=== PATIENT | female | born 1980 | race Caucasian/White ===

== ENCOUNTER → 2016-10-01 | Outpatient (CLI) | payer SELFPAY ==
--- NOTE | 2016-10-01 09:27 | US ---
EXAMINATION TYPE: US pelvic complete DATE OF EXAM: 10/01/2016 9:10 AM COMPARISON: CT on PACS CLINICAL HISTORY: Generalized ABD pain and primarily at LUQ; , family HX of endometriosis TECHNIQUE: Transabdominal (TA) Date of LMP: 09/14/2016 EXAM MEASUREMENTS: Uterus: 10.0 x 6.0 x 4.7cm Endometrial Stripe: 1.8cm Right Ovary: 3.3 x 2.8 x 3.1cm Left Ovary: 2.5 x 2.0 x 1.8cm FINDINGS: Findings: 1. Uterus: Anteverted 2. Endometrium: 3 line phase observed by sonography, thickness is wnl for Day 16 LMP 3. Right Ovary: small follicles are noted, color flow is noted within/at periphery of ovary 4. Left Ovary: small follicles noted with largest = 0.6 x 0.7 x 0.7cmcolor flow is noted within/at periphery of ovary 5. Bilateral Adnexa: within normal limits 6. Posterior cul-de-sac: 2 areas of free fluid noted with largest = 2.0 x 1.5 x 1.3cm IMPRESSION: 1. Nonspecific free fluid in pelvis.
--- NOTE | 2016-10-01 09:56 | US ---
EXAMINATION TYPE: US abdomen complete DATE OF EXAM: 10/01/2016 8:55 AM COMPARISON: CT on PACS CLINICAL HISTORY: Generalized Abd pain especially at LUQ; family HX of endometriosis. EXAM MEASUREMENTS: Liver Length: 17.3cm Gallbladder Wall: 0.2cm CBD: 0.4cm Spleen: 10.3cm Right Kidney: 12.1 x 5.7 x 4.7cm Left Kidney: 11.8 x 5.6 x 5.6cm ANATOMY: Findings: Pancreas: Limited by bowel gas Liver: Within normal limits Gallbladder: Within normal limits Evidence for sonographic Yap's sign: No CBD: Within normal limits Spleen: Within normal limits Right Kidney: No hydronephrosis or masses seen Left Kidney: No definite hydronephrosis or nephrolithiasis. Upper IVC: Within normal limits Abd Aorta: Within normal limits IMPRESSION: 1. No acute process. Normal Values: Liver Length: < 16cm wnl, 17-18cm upper limits, >18cm enlarged Spleen Length = < 13cm Renal Length = 9 - 12cm GB Wall: < 0.3cm CBD: < 0.6cm or < 1.0cm post cholecystectomy
== END | disposition home or self-care (01) ==
LOC: RADUSWWP 08:20
PROVIDERS: ATTEND Family Medicine
DX: Z00.00 Encounter for general adult medical examination without abnormal findings (principal); N39.0 Urinary tract infection, site not specified; R10.9 Unspecified abdominal pain; T50.905A Adverse effect of unspecified drugs, medicaments and biological substances, initial encounter; F41.9 Anxiety disorder, unspecified; F32.9 Major depressive disorder, single episode, unspecified; H53.9 Unspecified visual disturbance; N94.6 Dysmenorrhea, unspecified; N80.9 Endometriosis, unspecified; Z71.89 Other specified counseling; T78.1XXA Other adverse food reactions, not elsewhere classified, initial encounter; F41.1 Generalized anxiety disorder; Z87.448 Personal history of other diseases of urinary system; Z86.79 Personal history of other diseases of the circulatory system; D50.9 Iron deficiency anemia, unspecified; R19.4 Change in bowel habit; I88.9 Nonspecific lymphadenitis, unspecified; N92.0 Excessive and frequent menstruation with regular cycle; L98.9 Disorder of the skin and subcutaneous tissue, unspecified; E04.9 Nontoxic goiter, unspecified; F17.200 Nicotine dependence, unspecified, uncomplicated; Z71.3 Dietary counseling and surveillance; M25.50 Pain in unspecified joint; M54.9 Dorsalgia, unspecified
CPT/HCPCS: 76700; 76856

== ENCOUNTER → 2017-05-25 | Outpatient (CLI) | payer OTHER ==
[2017-05-26 01:34] LABS: Gliadin AB IgA, Deaminated NEGATIVE (NEGATIVE); Gliadin AB IgG, Deaminated NEGATIVE (NEGATIVE); Gliadin AB IgG, Unit <0.4 U/mL; Tis Transglutaminase IgA Unit <0.5 AI; Tis Transglutaminase IgG Unit <0.8 U/mL
== END | disposition home or self-care (01) ==
LOC: LABWHC1 15:24
PROVIDERS: ATTEND Allergy & Immunology
DX: E05.90 Thyrotoxicosis, unspecified without thyrotoxic crisis or storm (principal); K52.9 Noninfective gastroenteritis and colitis, unspecified
CPT/HCPCS: 36415; 82784; 83516; 84436; 84439; 84443; 86376; 86800

== ENCOUNTER 2018-10-21 21:00 | Emergency (ER) | payer BC ==
[2018-10-22 04:53] LABS: ALT 37 U/L (9-52); AST 21 U/L (14-36); Alkaline Phosphatase 73 U/L (38-126); Anion Gap 7 mmol/L; Blood Urea Nitrogen 10 mg/dL (7-17); Calcium 9.5 mg/dL (8.4-10.2); Carbon Dioxide 25 mmol/L (22-30); Chloride 106 mmol/L (98-107); Glucose 92 mg/dL (74-99); Potassium 4.5 mmol/L (3.5-5.1); Sodium 138 mmol/L (137-145); Total Bilirubin 0.4 mg/dL (0.2-1.3); Total Protein 6.8 g/dL (6.3-8.2)
[2018-10-22 05:06] LABS: INR 0.9 (<1.2); Partial Thromboplastin Time 25.7 sec (22.0-30.0); Prothrombin Time 9.5 sec (9.0-12.0)
[2018-10-22 05:27] LABS: Basophils % (A) 0 %; Eosinophils # (A) 0.2 k/uL (0-0.7); Eosinophils % (A) 2 %; HCT 36.5 % (34.0-46.0); HGB 11.6 gm/dL (11.4-16.0); Lymphocytes # (A) 2.5 k/uL (1.0-4.8); Lymphocytes % (A) 24 %; MCH 31.1 pg (25.0-35.0); MCHC 31.9 g/dL (31.0-37.0); MCV 97.5 fL (80.0-100.0); Mean Platelet Volume 8.5; Monocytes # (A) 0.5 k/uL (0-1.0); Monocytes % (A) 5 %; Neutrophils # (A) 6.9 k/uL (1.3-7.7); Neutrophils % (A) 67 %; Platelet Count 313 k/uL (150-450); RBC 3.74 m/uL (3.80-5.40); RDW 14.7 % (11.5-15.5); WBC 10.3 k/uL (3.8-10.6)
[2018-10-22 09:10] LABS: Appearance,Urine Cloudy (Clear); Bilirubin,Urine Negative (Negative); Blood,Urine Large (Negative); Color,Urine Light Red; Glucose,Urine (UA) Negative (Negative); Ketones,Urine Trace (Negative); Leukocyte Esterase,Urine Small (Negative); Mucus,Urine Occasional /hpf; Nitrite,Urine Negative (Negative); PH, Urine 5.5 (5.0-8.0); Protein,Urine 1+ (Negative); RBC,Urine >182 /hpf (0-5); Specific Gravity,Urine 1.015 (1.001-1.035); Urobilinogen,Urine <2.0 mg/dL (<2.0); WBC,Urine >182 /hpf (0-5)
== END 2018-10-21 23:57 | disposition home or self-care (01) ==
LOC: EC 21:00
DX: N93.9 Abnormal uterine and vaginal bleeding, unspecified (principal); D64.9 Anemia, unspecified; F17.200 Nicotine dependence, unspecified, uncomplicated; Z88.0 Allergy status to penicillin; Z88.2 Allergy status to sulfonamides
CPT/HCPCS: 36415; 80053; 81001; 85025; 85610; 85730; 86850; 86900; 86901; 99284

== ENCOUNTER → 2019-08-16 | Outpatient (CLI) | payer BC ==
[2019-08-16 10:36] LABS: Basophils # (A) 0.1 k/uL (0-0.2); Basophils % (A) 2 %; Eosinophils # (A) 0.3 k/uL (0-0.7); Eosinophils % (A) 3 %; HCT 40.7 % (34.0-46.0); HGB 13.1 gm/dL (11.4-16.0); Lymphocytes # (A) 1.6 k/uL (1.0-4.8); Lymphocytes % (A) 20 %; MCH 31.3 pg (25.0-35.0); MCHC 32.1 g/dL (31.0-37.0); MCV 97.7 fL (80.0-100.0); Mean Platelet Volume 8.6; Monocytes # (A) 0.5 k/uL (0-1.0); Monocytes % (A) 6 %; Neutrophils # (A) 5.4 k/uL (1.3-7.7); Neutrophils % (A) 68 %; Platelet Count 296 k/uL (150-450); RBC 4.17 m/uL (3.80-5.40)
[2019-08-16 12:07] LABS: INR 0.9 (<1.2); Prothrombin Time 9.6 sec (9.0-12.0)
[2019-08-16 17:44] LABS: Cardiolipin Ab IgG Interp NEGATIVE (NEGATIVE); Cardiolipin Ab IgM Interp NEGATIVE (NEGATIVE); Cardiolipin IgA Antibody 1.7 U/mL; Cardiolipin IgM Antibody 0.5 U/mL
[2019-08-17 11:34] LABS: Protein C (Activity) 124 % (71-138)
[2019-08-17 11:37] LABS: Anti-Thrombin III Activity 103 % (79-109)
[2019-08-17 12:00] LABS: Free Protein S Antigen 82 % (50 - 147); Protein S Antigen 103 % (50 - 140)
[2019-08-17 13:36] LABS: APTT 41 Sec(s) (<43); Dilute Russell Viper Venom 43 Sec(s) (<44)
== END | disposition home or self-care (01) ==
LOC: LABWHC1 08:53
PROVIDERS: ATTEND Nurse Practitioner
DX: Z09 Encounter for follow-up examination after completed treatment for conditions other than malignant neoplasm (principal); Z83.2 Family history of diseases of the blood and blood-forming organs and certain disorders involving the immune mechanism
CPT/HCPCS: 36415; 81241; 83090; 85025; 85300; 85303; 85305; 85306; 85384; 85610; 85613; 85730; 86147

== ENCOUNTER 2019-09-30 03:00 | Emergency (ER) | payer BC ==
[2019-09-30] MEDS ORDERED: SODIUM CHLORIDE 0.9% 1,000 ML IV STA ×2 (03:28→04:14)
[2019-09-30] MEDS ORDERED: ONDANSETRON 4 MG/2 ML VIAL IVP STA (03:54)
[2019-09-30] MEDS ORDERED: KETOROLAC 30 MG/ML 1 ML VIAL IVP STA (03:54)
[2019-09-30 04:00] LABS: Basophils # (A) 0.1 k/uL (0-0.2); Basophils % (A) 1 %; Eosinophils # (A) 0.2 k/uL (0-0.7); Eosinophils % (A) 2 %; HGB 12.6 gm/dL (11.4-16.0); Lymphocytes # (A) 1.3 k/uL (1.0-4.8); Lymphocytes % (A) 12 %; MCH 31.9 pg (25.0-35.0); MCHC 33.1 g/dL (31.0-37.0); MCV 96.5 fL (80.0-100.0); Monocytes # (A) 0.5 k/uL (0-1.0); Monocytes % (A) 4 %; Neutrophils # (A) 8.7 k/uL (1.3-7.7); Neutrophils % (A) 80 %; Platelet Count 293 k/uL (150-450); RBC 3.94 m/uL (3.80-5.40); RDW 12.7 % (11.5-15.5); WBC 10.9 k/uL (3.8-10.6)
[2019-09-30 04:05] LABS: Appearance,Urine Cloudy (Clear); Bilirubin,Urine Negative (Negative); Blood,Urine Large (Negative); Color,Urine Red; Glucose,Urine (UA) Negative (Negative); Ketones,Urine Trace (Negative); Leukocyte Esterase,Urine Moderate (Negative); Mucus,Urine Few /hpf; Nitrite,Urine Negative (Negative); PH, Urine 5.5 (5.0-8.0); Protein,Urine 1+ (Negative); RBC,Urine >182 /hpf (0-5); Specific Gravity,Urine 1.024 (1.001-1.035); Squamous Epithelial Cell,Urine 2 /hpf (0-4); Urobilinogen,Urine <2.0 mg/dL (<2.0); WBC,Urine >182 /hpf (0-5)
--- NOTE | 2019-09-30 04:05 | ED ---
General Adult HPI - General Source: patient, RN notes reviewed Mode of arrival: ambulatory Limitations: no limitations <Adal Lee P - Last Filed: 09/30/19 04:01> <Honey Donaldson P - Last Filed: 09/30/19 05:37> - General Chief complaint: Abdominal Pain Stated complaint: Abdominal pain rt side Time Seen by Provider: 09/30/19 03:12 - History of Present Illness Initial comments: 38-year-old female with a past medical history of endometriosis presents to the emergency department for right lower quadrant pain. Patient states this started approximately 11 PM tonight. States it is a sharp stabbing pain. Patient states she commonly gets pain secondary to endometriosis. Patient states that she has had a salpingectomy in March and she is scheduled to have a hysterectomy in October. Denies fevers or chills. Admits to one episode of vomiting after the pain started. Denies any nausea prior to the pain. Denies any diarrhea. Patient states she is currently menstruating. Patient has no other complaints at this time including shortness of breath, chest pain, headache, or visual changes. (Adal Lee) - Related Data Home Medications Medication Instructions Recorded Confirmed Methimazole [Tapazole] 5 mg PO DAILY 12/30/15 01/10/16 Iron 18 mg PO DAILY 01/10/16 01/10/16 Previous Rx's Medication Instructions Recorded Sulfamethoxazole/Trimethoprim 1 each PO BID 14 Days #28 tablet 09/30/19 [Bactrim DS 800-160 mg] Allergies Allergy/AdvReac Type Severity Reaction Status Date / Time amoxicillin Allergy Rash/Hives Verified 09/30/19 03:10 Penicillins Allergy Rash/Hives Verified 09/30/19 03:10 Review of Systems ROS Other: All systems not noted in ROS Statement are negative. <Adal Lee P - Last Filed: 09/30/19 04:01> ROS Other: All systems not noted in ROS Statement are negative. <Honey Donaldson P - Last Filed: 09/30/19 05:37> ROS Statement: Those systems with pertinent positive or pertinent negative responses have been documented in the HPI. Past Medical History Past Medical History: Thyroid Disorder Additional Past Medical History / Comment(s): low iron interstital cysitis History of Any Multi-Drug Resistant Organisms: None Reported Past Surgical History: Uterine Ablation Additional Past Surgical History / Comment(s): D&C 2007, wisdom teeth, laparoscopic lap for endometriosis. Past Psychological History: Anxiety Smoking Status: Current every day smoker Past Alcohol Use History: None Reported Past Drug Use History: Marijuana <Adal Lee P - Last Filed: 09/30/19 04:01> General Exam Limitations: no limitations General appearance: alert, in no apparent distress Head exam: Present: atraumatic, normocephalic, normal inspection Eye exam: Present: normal appearance, PERRL, EOMI. Absent: scleral icterus, conjunctival injection, periorbital swelling ENT exam: Present: normal exam, mucous membranes moist Neck exam: Present: normal inspection, full ROM. Absent: tenderness, meningis mus, lymphadenopathy Respiratory exam: Present: normal lung sounds bilaterally. Absent: respiratory distress, wheezes, rales, rhonchi, stridor Cardiovascular Exam: Present: regular rate, normal rhythm, normal heart sounds. Absent: systolic murmur, diastolic murmur, rubs, gallop, clicks GI/Abdominal exam: Present: soft, normal bowel sounds. Absent: distended, tenderness (No tenderness of the abdomen), guarding, rebound, rigid Expanded GI/Abdominal exam: Absent: psoas sign, obturator sign, heel tap sign, Yap's sign, Rovsing's sign, tenderness at McBurney's Point Neurological exam: Present: alert <Adal Lee P - Last Filed: 09/30/19 04:01> Course Vital Signs 09/30/19 03:07 Temperature 97.8 F Pulse Rate 79 Respiratory 18 Rate Blood Pressure 124/73 O2 Sat by Pulse 100 Oximetry Medical Decision Making - Lab Data Result diagrams: 09/30/19 03:39 <Adal Lee P - Last Filed: 09/30/19 04:01> - Lab Data Result diagrams: 09/30/19 03:39 09/30/19 03:39 <Honey Donaldson P - Last Filed: 09/30/19 05:37> - Medical Decision Making Patient presents for right lower quadrant pain. This is been ongoing for the past few hours. Vitals are stable. Patient is afebrile. Patient does not have any tenderness to the lower abdomen. No right lower quadrant tenderness. No physical exam signs consistent with appendicitis, no McBurney point tenderness. (Adal Lee) - Lab Data Lab Results 09/30/19 09/30/19 09/30/19 Range/Units 03:39 03:39 03:39 WBC 10.9 H (3.8-10.6) k/uL RBC 3.94 (3.80-5.40) m/uL Hgb 12.6 (11.4-16.0) gm/dL Hct 38.0 (34.0-46.0) % MCV 96.5 (80.0-100.0) fL MCH 31.9 (25.0-35.0) pg MCHC 33.1 (31.0-37.0) g/dL RDW 12.7 (11.5-15.5) % Plt Count 293 (150-450) k/uL Neutrophils % 80 % Lymphocytes % 12 % Monocytes % 4 % Eosinophils % 2 % Basophils % 1 % Neutrophils # 8.7 H (1.3-7.7) k/uL Lymphocytes # 1.3 (1.0-4.8) k/uL Monocytes # 0.5 (0-1.0) k/uL Eosinophils # 0.2 (0-0.7) k/uL Basophils # 0.1 (0-0.2) k/uL Sodium 138 (137-145) mmol/L Potassium 4.1 (3.5-5.1) mmol/L Chloride 108 H (98-107) mmol/L Carbon Dioxide 21 L (22-30) mmol/L Anion Gap 9 mmol/L BUN 17 (7-17) mg/dL Creatinine 0.62 (0.52-1.04) mg/dL Est GFR (CKD-EPI)AfAm >90 (>60 ml/min/1.73 sqM) Est GFR (CKD-EPI)NonAf >90 (>60 ml/min/1.73 sqM) Glucose 124 H (74-99) mg/dL Calcium 9.0 (8.4-10.2) mg/dL Total Bilirubin 0.5 (0.2-1.3) mg/dL AST 24 (14-36) U/L ALT 23 (4-34) U/L Alkaline Phosphatase 72 (38-126) U/L Total Protein 6.6 (6.3-8.2) g/dL Albumin 3.7 (3.5-5.0) g/dL Amylase 63 (30-110) U/L Lipase 98 (23-300) U/L Urine Color Urine Appearance (Clear) Urine pH (5.0-8.0) Ur Specific Harvey (1.001-1.035) Urine Protein (Negative) Urine Glucose (UA) (Negative) Urine Ketones (Negative) Urine Blood (Negative) Urine Nitrite (Negative) Urine Bilirubin (Negative) Urine Urobilinogen (<2.0) mg/dL Ur Leukocyte Esterase (Negative) Urine RBC (0-5) /hpf Urine WBC (0-5) /hpf Ur Squamous Epith Cells (0-4) /hpf Urine Mucus (None) /hpf Urine HCG, Qual Not Detected (Not Detectd) 09/30/19 Range/Units 03:39 WBC (3.8-10.6) k/uL RBC (3.80-5.40) m/uL Hgb (11.4-16.0) gm/dL Hct (34.0-46.0) % MCV (80.0-100.0) fL MCH (25.0-35.0) pg MCHC (31.0-37.0) g/dL RDW (11.5-15.5) % Plt Count (150-450) k/uL Neutrophils % % Lymphocytes % % Monocytes % % Eosinophils % % Basophils % % Neutrophils # (1.3-7.7) k/uL Lymphocytes # (1.0-4.8) k/uL Monocytes # (0-1.0) k/uL Eosinophils # (0-0.7) k/uL Basophils # (0-0.2) k/uL Sodium (137-145) mmol/L Potassium (3.5-5.1) mmol/L Chloride (98-107) mmol/L Carbon Dioxide (22-30) mmol/L Anion Gap mmol/L BUN (7-17) mg/dL Creatinine (0.52-1.04) mg/dL Est GFR (CKD-EPI)AfAm (>60 ml/min/1.73 sqM) Est GFR (CKD-EPI)NonAf (>60 ml/min/1.73 sqM) Glucose (74-99) mg/dL Calcium (8.4-10.2) mg/dL Total Bilirubin (0.2-1.3) mg/dL AST (14-36) U/L ALT (4-34) U/L Alkaline Phosphatase (38-126) U/L Total Protein (6.3-8.2) g/dL Albumin (3.5-5.0) g/dL Amylase (30-110) U/L Lipase (23-300) U/L Urine Color Red Urine Appearance Cloudy H (Clear) Urine pH 5.5 (5.0-8.0) Ur Specific Harvey 1.024 (1.001-1.035) Urine Protein 1+ H (Negative) Urine Glucose (UA) Negative (Negative) Urine Ketones Trace H (Negative) Urine Blood Large H (Negative) Urine Nitrite Negative (Negative) Urine Bilirubin Negative (Negative) Urine Urobilinogen <2.0 (<2.0) mg/dL Ur Leukocyte Esterase Moderate H (Negative) Urine RBC >182 H (0-5) /hpf Urine WBC >182 H (0-5) /hpf Ur Squamous Epith Cells 2 (0-4) /hpf Urine Mucus Few H (None) /hpf Urine HCG, Qual (Not Detectd) Disposition <Adal Lee P - Last Filed: 09/30/19 04:01> Is patient prescribed a controlled substance at d/c from ED?: No <Honey Donaldson P - Last Filed: 09/30/19 05:37> Clinical Impression: UTI (urinary tract infection) Disposition: HOME SELF-CARE Condition: Stable Additional Instructions: Take Bactrim twice daily for 14 days. Continue taking antibiotic even if he had resolution of her symptoms. Follow-up with her primary care physician for repeat urinalysis to ensure that the urinary tract infection has cleared. Return to the ER Any worsening pain discomfort fevers chills nausea vomiting inability tolerate her oral antibiotics or any new or concerning symptoms. Prescriptions: Sulfamethoxazole/Trimethoprim [Bactrim DS 800-160 mg] 1 each PO BID 14 Days #28 tablet Referrals: Dolly Ventura MD [Primary Care Provider] - 1-2 days
[2019-09-30 04:08] LABS: ALT 23 U/L (4-34); AST 24 U/L (14-36); African American GFR (CKD) >90 (>60 ml/min/1.73 sqM); Albumin 3.7 g/dL (3.5-5.0); Alkaline Phosphatase 72 U/L (38-126); Amylase 63 U/L (30-110); Anion Gap 9 mmol/L; Blood Urea Nitrogen 17 mg/dL (7-17); Carbon Dioxide 21 mmol/L (22-30); Chloride 108 mmol/L (98-107); Glucose 124 mg/dL (74-99); Non-African American GFR(CKD) >90 (>60 ml/min/1.73 sqM); Potassium 4.1 mmol/L (3.5-5.1); Sodium 138 mmol/L (137-145); Total Bilirubin 0.5 mg/dL (0.2-1.3); Total Protein 6.6 g/dL (6.3-8.2)
[2019-09-30] MEDS ORDERED: cefTRIAXone IN SWFI 1,000 MG/10 ML SYRINGE IVP STA (04:14)
[2019-09-30 05:57] VITALS: BP 137/84; PULSE 87; RESP 20; TEMP 98.7
== END 2019-09-30 05:57 | disposition home or self-care (01) ==
LOC: EC 03:00
DX: N39.0 Urinary tract infection, site not specified (principal); F17.200 Nicotine dependence, unspecified, uncomplicated; Z79.899 Other long term (current) drug therapy; Z88.0 Allergy status to penicillin
CPT/HCPCS: 36415; 80053; 82150; 83690; 85025; 81001; 81025; 87086; 99284; 96374; 96375 ×2; 96361 ×2; J2405; J0696; J1885

== ENCOUNTER 2019-10-09 11:25 | Emergency (ER) | payer BC ==
[2019-10-09 11:36] VITALS: RESP 18; TEMP 97.9
[2019-10-09 12:19] LABS: Appearance,Urine Cloudy (Clear); Bilirubin,Urine Negative (Negative); Blood,Urine Large (Negative); Color,Urine Red; Glucose,Urine (UA) Negative (Negative); Ketones,Urine Trace (Negative); Leukocyte Esterase,Urine Small (Negative); Mucus,Urine Occasional /hpf; Nitrite,Urine Negative (Negative); PH, Urine 5.5 (5.0-8.0); Protein,Urine 1+ (Negative); RBC,Urine >182 /hpf (0-5); Specific Gravity,Urine 1.018 (1.001-1.035); Urobilinogen,Urine <2.0 mg/dL (<2.0); WBC,Urine 104 /hpf (0-5)
[2019-10-09 12:48] LABS: Basophils # (A) 0.1 k/uL (0-0.2); Basophils % (A) 1 %; Eosinophils # (A) 0.9 k/uL (0-0.7); Eosinophils % (A) 8 %; HCT 40.7 % (34.0-46.0); HGB 13.1 gm/dL (11.4-16.0); Lymphocytes # (A) 1.8 k/uL (1.0-4.8); Lymphocytes % (A) 16 %; MCH 31.1 pg (25.0-35.0); MCHC 32.2 g/dL (31.0-37.0); MCV 96.7 fL (80.0-100.0); Mean Platelet Volume 8.9; Monocytes # (A) 0.7 k/uL (0-1.0); Monocytes % (A) 6 %; Neutrophils # (A) 7.9 k/uL (1.3-7.7); Neutrophils % (A) 69 %; Platelet Count 254 k/uL (150-450); RBC 4.21 m/uL (3.80-5.40); RDW 12.5 % (11.5-15.5); WBC 11.4 k/uL (3.8-10.6)
[2019-10-09 13:02] LABS: ALT 26 U/L (4-34); AST 22 U/L (14-36); African American GFR (CKD) >90 (>60 ml/min/1.73 sqM); Albumin 3.8 g/dL (3.5-5.0); Alkaline Phosphatase 83 U/L (38-126); Anion Gap 9 mmol/L; Blood Urea Nitrogen 11 mg/dL (7-17); Calcium 8.9 mg/dL (8.4-10.2); Carbon Dioxide 27 mmol/L (22-30); Chloride 105 mmol/L (98-107); Glucose 97 mg/dL (74-99); Non-African American GFR(CKD) >90 (>60 ml/min/1.73 sqM); Sodium 141 mmol/L (137-145); Total Bilirubin 0.4 mg/dL (0.2-1.3); Total Protein 6.7 g/dL (6.3-8.2)
[2019-10-09 13:35] VITALS: BP 120/73; PULSE 78
--- NOTE | 2019-10-09 13:56 | CT ---
EXAMINATION TYPE: CT abdomen pelvis wo con DATE OF EXAM: 10/09/2019 COMPARISON: 12/24/2018 HISTORY: RT flank pain/hematuria today. recent UTI CT DLP: 2134 mGycm Examination of the solid and hollow viscera is limited given the lack of contrast. FINDINGS: LUNG BASES: No evidence for nodule. No evidence for infiltrate. LIVER/GB: The gallbladder is unremarkable. No space-occupying hepatic lesion. PANCREAS: No pancreatic mass identified. No inflammatory process seen. SPLEEN: No evidence for splenomegaly. No intrasplenic lesions seen. ADRENALS: No adrenal nodules identified. No evidence for thickening. KIDNEYS: No evidence for renal mass. Small bilateral nonobstructing renal calculi all less than 3 mm. There is fullness of the right renal collecting system however a discrete obstructing calculus is no t identified. This could reflect a recently passed calculus. Correlate clinically. BOWEL: Appendix has a normal appearance. No evidence of bowel obstruction. No inflammatory process. Lymph nodes: No evidence for adenopathy greater than 1 cm. Abdominal aorta: Atheromatous changes seen. No evidence for aneurysm. Genital organs: No significant abnormality. Other: No significant abnormality. IMPRESSION: Small bilateral nonobstructing renal calculi all less than 3 mm. There is fullness of the right renal collecting system however a discrete obstructing calculus is not identified. This could reflect a re cently passed calculus. Correlate clinically.
[2019-10-09] MEDS ORDERED: cefTRIAXone 1,000 MG VIAL (IM USE) IM STA (14:01)
--- NOTE | 2019-10-09 14:04 | ED ---
Abdominal Pain HPI - General Chief Complaint: Abdominal Pain Stated Complaint: Rt side pain Time Seen by Provider: 10/09/19 12:02 Source: patient Mode of arrival: ambulatory Limitations: no limitations - History of Present Illness Initial Comments: 38yo female history of interstitial cystitis presents emergency department today for chief complaint of right flank pain that has since resolved dysuria. Patient states that this morning she noticed right flank pain she states is sharp in nature coming going fluctuating in intensity. Patient states he felt similar to the pain she experienced a few weeks prior. Patient denies history of fevers. She denies any nausea or vomiting. Patient states the pain radiated towards her groin and she noticed that she could not urinate after multiple times and having urgency patient states that once she is emergency department ahead to provide urine sample she was able to finally urinate however she noticed dysuria and hematuria. Patient now states that the pain in the right flank is gone completely. Patient denies any current symptoms aside from hematuria and concern for kidney stone patient denies known history. Patient afebrile, comfortable in appearance on arrival. - Related Data Home Medications Medication Instructions Recorded Confirmed Methimazole [Tapazole] 5 mg PO DAILY 12/30/15 01/10/16 Iron 18 mg PO DAILY 01/10/16 01/10/16 Previous Rx's Medication Instructions Recorded Sulfamethoxazole/Trimethoprim 1 each PO BID 14 Days #28 tablet 09/30/19 [Bactrim DS 800-160 mg] Cephalexin [Keflex] 500 mg PO Q6HR 7 Days #28 cap 10/09/19 Allergies Allergy/AdvReac Type Severity Reaction Status Date / Time amoxicillin Allergy Rash/Hives Verified 10/09/19 11:36 Penicillins Allergy Rash/Hives Verified 10/09/19 11:36 Review of Systems ROS Statement: Those systems with pertinent positive or pertinent negative responses have been documented in the HPI. ROS Other: All systems not noted in ROS Statement are negative. Past Medical History Past Medical History: Thyroid Disorder Additional Past Medical History / Comment(s): low iron interstital cysitis History of Any Multi-Drug Resistant Organisms: None Reported Past Surgical History: Uterine Ablation Additional Past Surgical History / Comment(s): D&C 2007, wisdom teeth, laparoscopic lap for endometriosis. Past Psychological History: Anxiety Smoking Status: Current every day smoker Past Alcohol Use History: None Reported Past Drug Use History: Marijuana General Exam - General Exam Comments Initial Comments: General: The patient is awake and alert, in no distress, and does not appear acutely ill. Eye: +3 mm pupils are equal, round and reactive to light, extra-ocular movements are intact. No nystagmus. There is normal conjunctiva bilaterally. No signs of icterus. Ears, nose, mouth and throat: There are moist mucous membranes and no oral lesions. Neck: The neck is supple, there is no tenderness or JVD. Cardiovascular: There is a regular rate and rhythm. No murmur, rub or gallop is appreciated. Respiratory: Lungs are clear to auscultation, respirations are non-labored, breath sounds are equal. No wheezes, stridor, rales, or rhonchi. Gastrointestinal: Soft, non-distended, non-tender abdomen without masses or organomegaly noted. There is no rebound or guarding present. Musculoskeletal: Normal ROM, no tenderness. Strength 5/5. Sensation intact. Pulses equal bilaterally 2+. Neurological: A&O x 3. CN II-XII intact grossly, There are no obvious motor or sensory deficits. Coordination appears grossly intact. Speech is normal. Skin: Skin is warm and dry and no rashes or lesions are noted. Psychiatric: Cooperative, appropriate mood & affect, normal judgment. Limitations: no limitations Course Vital Signs 10/09/19 10/09/19 11:33 13:34 Temperature 97.9 F Pulse Rate 97 78 Respiratory 18 18 Rate Blood Pressure 136/95 120/73 O2 Sat by Pulse 99 97 Oximetry Medical Decision Making - Medical Decision Making 38yo female presenting today for chief complaint of right flank pain has since subsided after patient had been towards her groin dysuria and inability urinate then spotting is passage of urine with pain and hematuria. CT revealed findings consistent with possibly recently passed stone there is no evidence of urolithiasis. Nephrolithiasis his nose bilaterally. No obstructing stones. Patient's urine is concerning for possible urinary tract infection superimposed on hematuria most likely from recently passed stone. Patient was recently on Macrobid. Patient denies any fever she does not appear toxic very mild leukocytosis. At this time feel patient is stable for discharge with outpatient neurology and primary care follow-up with strict return parameters for any fevers return of pain patient verbalizes understanding and is agreeable with this Plan and was discharged appearing well - Lab Data Result diagrams: 10/09/19 12:37 10/09/19 12:37 Lab Results 10/09/19 10/09/19 10/09/19 Range/Units 11:35 11:35 12:37 WBC 11.4 H (3.8-10.6) k/uL RBC 4.21 (3.80-5.40) m/uL Hgb 13.1 (11.4-16.0) gm/dL Hct 40.7 (34.0-46.0) % MCV 96.7 (80.0-100.0) fL MCH 31.1 (25.0-35.0) pg MCHC 32.2 (31.0-37.0) g/dL RDW 12.5 (11.5-15.5) % Plt Count 254 (150-450) k/uL Neutrophils % 69 % Lymphocytes % 16 % Monocytes % 6 % Eosinophils % 8 % Basophils % 1 % Neutrophils # 7.9 H (1.3-7.7) k/uL Lymphocytes # 1.8 (1.0-4.8) k/uL Monocytes # 0.7 (0-1.0) k/uL Eosinophils # 0.9 H (0-0.7) k/uL Basophils # 0.1 (0-0.2) k/uL Sodium (137-145) mmol/L Potassium (3.5-5.1) mmol/L Chloride (98-107) mmol/L Carbon Dioxide (22-30) mmol/L Anion Gap mmol/L BUN (7-17) mg/dL Creatinine (0.52-1.04) mg/dL Est GFR (CKD-EPI)AfAm (>60 ml/min/1.73 sqM) Est GFR (CKD-EPI)NonAf (>60 ml/min/1.73 sqM) Glucose (74-99) mg/dL Calcium (8.4-10.2) mg/dL Total Bilirubin (0.2-1.3) mg/dL AST (14-36) U/L ALT (4-34) U/L Alkaline Phosphatase (38-126) U/L Total Protein (6.3-8.2) g/dL Albumin (3.5-5.0) g/dL Urine Color Red Urine Appearance Cloudy H (Clear) Urine pH 5.5 (5.0-8.0) Ur Specific Delta 1.018 (1.001-1.035) Urine Protein 1+ H (Negative) Urine Glucose (UA) Negative (Negative) Urine Ketones Trace H (Negative) Urine Blood Large H (Negative) Urine Nitrite Negative (Negative) Urine Bilirubin Negative (Negative) Urine Urobilinogen <2.0 (<2.0) mg/dL Ur Leukocyte Esterase Small H (Negative) Urine RBC >182 H (0-5) /hpf Urine WBC 104 H (0-5) /hpf Urine Mucus Occasional H (None) /hpf Urine HCG, Qual Not Detected (Not Detectd) 10/09/19 Range/Units 12:37 WBC (3.8-10.6) k/uL RBC (3.80-5.40) m/uL Hgb (11.4-16.0) gm/dL Hct (34.0-46.0) % MCV (80.0-100.0) fL MCH (25.0-35.0) pg MCHC (31.0-37.0) g/dL RDW (11.5-15.5) % Plt Count (150-450) k/uL Neutrophils % % Lymphocytes % % Monocytes % % Eosinophils % % Basophils % % Neutrophils # (1.3-7.7) k/uL Lymphocytes # (1.0-4.8) k/uL Monocytes # (0-1.0) k/uL Eosinophils # (0-0.7) k/uL Basophils # (0-0.2) k/uL Sodium 141 (137-145) mmol/L Potassium 4.0 (3.5-5.1) mmol/L Chloride 105 (98-107) mmol/L Carbon Dioxide 27 (22-30) mmol/L Anion Gap 9 mmol/L BUN 11 (7-17) mg/dL Creatinine 0.75 (0.52-1.04) mg/dL Est GFR (CKD-EPI)AfAm >90 (>60 ml/min/1.73 sqM) Est GFR (CKD-EPI)NonAf >90 (>60 ml/min/1.73 sqM) Glucose 97 (74-99) mg/dL Calcium 8.9 (8.4-10.2) mg/dL Total Bilirubin 0.4 (0.2-1.3) mg/dL AST 22 (14-36) U/L ALT 26 (4-34) U/L Alkaline Phosphatase 83 (38-126) U/L Total Protein 6.7 (6.3-8.2) g/dL Albumin 3.8 (3.5-5.0) g/dL Urine Color Urine Appearance (Clear) Urine pH (5.0-8.0) Ur Specific Delta (1.001-1.035) Urine Protein (Negative) Urine Glucose (UA) (Negative) Urine Ketones (Negative) Urine Blood (Negative) Urine Nitrite (Negative) Urine Bilirubin (Negative) Urine Urobilinogen (<2.0) mg/dL Ur Leukocyte Esterase (Negative) Urine RBC (0-5) /hpf Urine WBC (0-5) /hpf Urine Mucus (None) /hpf Urine HCG, Qual (Not Detectd) Disposition Clinical Impression: Nephrolithiasis Disposition: HOME SELF-CARE Condition: Good Instructions (If sedation given, give patient instructions): Kidney Stones (ED) Additional Instructions: Please use medication as discussed. Please follow-up with family doctor in the next 2 days, and urology as discussed. If develop similar symptoms, develop fever, must return to ER. Please return to emergency room if the symptoms increase or worsen or for any other concerns. Prescriptions: Cephalexin [Keflex] 500 mg PO Q6HR 7 Days #28 cap Is patient prescribed a controlled substance at d/c from ED?: No Referrals: Dolly Ventura MD [Primary Care Provider] - 1-2 days Deshawn Adams MD [STAFF PHYSICIAN] - 1-2 days Time of Disposition: 14:03
== END 2019-10-09 14:20 | disposition home or self-care (01) ==
LOC: EC 11:25
DX: N20.0 Calculus of kidney (principal); D72.829 Elevated white blood cell count, unspecified; E07.9 Disorder of thyroid, unspecified; F17.200 Nicotine dependence, unspecified, uncomplicated; Z88.0 Allergy status to penicillin; Z79.899 Other long term (current) drug therapy; Z87.448 Personal history of other diseases of urinary system
CPT/HCPCS: 36415; 80053; 85025; 81001; 81025; 87086; 74176; 99284; 96372; J0696

== ENCOUNTER 2019-11-25 20:43 | Emergency (ER) | payer BC ==
[2019-11-25 20:48] VITALS: TEMP 98
[2019-11-25] MEDS ORDERED: SODIUM CHLORIDE 0.9% 1,000 ML IV ONE (20:50)
[2019-11-25] MEDS ORDERED: MORPHINE SULFATE 4 MG/ML SYRINGE IVP STA (20:55)
[2019-11-25] MEDS ORDERED: SODIUM CHLORIDE 0.9% 1,000 ML IV SCH (21:00)
[2019-11-25 21:15] LABS: Basophils # (A) 0.1 k/uL (0-0.2); Basophils % (A) 0 %; Eosinophils # (A) 0.5 k/uL (0-0.7); Eosinophils % (A) 3 %; HCT 40.3 % (34.0-46.0); Lymphocytes # (A) 2.3 k/uL (1.0-4.8); Lymphocytes % (A) 17 %; MCH 30.7 pg (25.0-35.0); MCHC 32.3 g/dL (31.0-37.0); MCV 94.9 fL (80.0-100.0); Mean Platelet Volume 8.8; Monocytes # (A) 0.7 k/uL (0-1.0); Monocytes % (A) 5 %; Neutrophils % (A) 74 %; Platelet Count 290 k/uL (150-450); RBC 4.25 m/uL (3.80-5.40); RDW 13.5 % (11.5-15.5); WBC 13.6 k/uL (3.8-10.6)
--- NOTE | 2019-11-25 21:27 | ED ---
Abdominal Pain HPI - General Chief Complaint: Abdominal Pain Stated Complaint: Abd pain Time Seen by Provider: 11/25/19 20:49 Source: patient Mode of arrival: ambulatory Limitations: no limitations - History of Present Illness Initial Comments: 38-year-old female currently 19 days post laparoscopic hysterectomy performed at [facility] presents emergency department for left upper quadrant pain since Tuesday. Patient states she's had persistent left upper quadrant pain since Tuesday. She describes it as a sharp pain that increases with movement. Patient denies any pleuritic chest pain hemoptysis leg swelling patient denies any substernal chest pain or pressure. Patient denies any shortness of breath. Patient states that she has not had any fevers she denies any vaginal discharge or orders and states she is a light pink discoloration on the toilet paper which she discussed on 's appointment with her AGRICULTURAL ENGINEER who stated that this was normal postoperative she also discussed the left upper quadrant THIS time her surgeon stated this may be due to an hematoma from the surgery and that this may last a few weeks. Patient denies any nausea vomiting diarrhea. Denies any hematuria. Patient does admit to some dysuria and urgency and thought she did UTI earlier this week. Patient denies any other complaints or concerns she de nies any lower pelvic pain she states there is no pain in the area of the surgery. Remaining review systems negative on arrival patient appears well no signs of acute distress afebrile - Related Data Home Medications Medication Instructions Recorded Confirmed Methimazole [Tapazole] 5 mg PO DAILY 12/30/15 01/10/16 Iron 18 mg PO DAILY 01/10/16 01/10/16 Previous Rx's Medication Instructions Recorded Sulfamethoxazole/Trimethoprim 1 each PO BID 14 Days #28 tablet 09/30/19 [Bactrim DS 800-160 mg] Cephalexin [Keflex] 500 mg PO Q6HR 7 Days #28 cap 10/09/19 Cephalexin [Keflex] 500 mg PO Q12HR 5 Days #10 cap 11/25/19 Allergies Allergy/AdvReac Type Severity Reaction Status Date / Time amoxicillin Allergy Rash/Hives Verified 11/25/19 20:48 Penicillins Allergy Rash/Hives Verified 11/25/19 20:48 Review of Systems ROS Statement: Those systems with pertinent positive or pertinent negative responses have been documented in the HPI. ROS Other: All systems not noted in ROS Statement are negative. Past Medical History Past Medical History: Thyroid Disorder Additional Past Medical History / Comment(s): low iron interstital cysitis History of Any Multi-Drug Resistant Organisms: None Reported Past Surgical History: Hysterectomy, Uterine Ablation Additional Past Surgical History / Comment(s): D&C 2007, wisdom teeth, laparoscopic lap for endometriosis. Past Psychological History: Anxiety Smoking Status: Current every day smoker Past Alcohol Use History: None Reported Past Drug Use History: Marijuana General Exam - General Exam Comments Initial Comments: General: The patient is awake and alert, in no distress, and does not appear acutely ill. Eye: Pupils are equal, round and reactive to light, extra-ocular movements are intact. No nystagmus. There is normal conjunctiva bilaterally. No signs of icterus. Ears, nose, mouth and throat: There are moist mucous membranes and no oral lesions. Neck: The neck is supple, there is no tenderness or JVD. Cardiovascular: There is a regular rate and rhythm. No murmur, rub or gallop is appreciated. Respiratory: Lungs are clear to auscultation, respirations are non-labored, breath sounds are equal. No wheezes, stridor, rales, or rhonchi. Gastrointestinal: Soft, non-distended, mild-moderte LUQ pain, no pelvic or lower abdominal pain to palpation, incision healed, no dehiscence the remaining abdomen is without masses or organomegaly noted. There is no rebound or guarding present. No CVA tenderness. Bowel sounds are unremarkable. Musculoskeletal: Normal ROM, no tenderness. Strength 5/5. Sensation intact. Pulses equal bilaterally 2+. Neurological: A&O x 3. CN II-XII intact grossly, There are no obvious motor or sensory deficits. Coordination appears grossly intact. Speech is normal. Skin: Skin is warm and dry and no rashes or lesions are noted. Psychiatric: Cooperative, appropriate mood & affect, normal judgment. Limitations: no limitations Course Vital Signs 11/25/19 11/25/19 11/25/19 20:45 21:38 22:19 Temperature 98 F 98 F Pulse Rate 107 H 90 88 Respiratory 20 18 18 Rate Blood Pressure 137/91 134/95 O2 Sat by Pulse 100 98 99 Oximetry Medical Decision Making - Medical Decision Making 38-year-old female presenting for left upper quadrant abdominal pain. Patient has mild leukocytosis. Patient is afebrile denies a lower pelvic pain patient denies any heavy vaginal bleeding. Patient recent follow-up and discussed left upper quadrant pain with her surgeon Dr. Hawk Malloy. Patient CT reported as above, nonspecific changes, no obvious infection at this time, noted minimal free air. Patient case including CT/Labs reviewed with attending. Consulted caption writer physician for Dr. Malloy, Dr. Rushing at [phone]-- i discussed VS, labs, clinical presentation, surgical history, i read the CT impression and at this time she feels infection is unlikely and recommends discharge with f/u in office this week. Patient is to call office tomorrow to make an appointment. Patient CT revealed possible cystitis chagnes, and patient admits to symptoms. Leukocytesterase on UA, will treat with keflex for UTI. Patient has no other complaints and appears well, she will be discharged and prefers discharge at this time. Return paramters including infection signs and return for increasing pain were discussed and patient was discharged appearing well, pain 10/05. Dr Asif agreeable to care plan and discharge at this time. - Lab Data Result diagrams: 11/25/19 20:59 11/25/19 20:59 Lab Results 11/25/19 11/25/19 11/25/19 Range/Units 20:59 20:59 21:03 WBC 13.6 H (3.8-10.6) k/uL RBC 4.25 (3.80-5.40) m/uL Hgb 13.0 (11.4-16.0) gm/dL Hct 40.3 (34.0-46.0) % MCV 94.9 (80.0-100.0) fL MCH 30.7 (25.0-35.0) pg MCHC 32.3 (31.0-37.0) g/dL RDW 13.5 (11.5-15.5) % Plt Count 290 (150-450) k/uL Neutrophils % 74 % Lymphocytes % 17 % Monocytes % 5 % Eosinophils % 3 % Basophils % 0 % Neutrophils # 10.0 H (1.3-7.7) k/uL Lymphocytes # 2.3 (1.0-4.8) k/uL Monocytes # 0.7 (0-1.0) k/uL Eosinophils # 0.5 (0-0.7) k/uL Basophils # 0.1 (0-0.2) k/uL Sodium 136 L (137-145) mmol/L Potassium 4.6 (3.5-5.1) mmol/L Chloride 105 (98-107) mmol/L Carbon Dioxide 22 (22-30) mmol/L Anion Gap 9 mmol/L BUN 13 (7-17) mg/dL Creatinine 0.73 (0.52-1.04) mg/dL Est GFR (CKD-EPI)AfAm >90 (>60 ml/min/1.73 sqM) Est GFR (CKD-EPI)NonAf >90 (>60 ml/min/1.73 sqM) Glucose 126 H (74-99) mg/dL Calcium 9.0 (8.4-10.2) mg/dL Total Bilirubin 0.8 (0.2-1.3) mg/dL AST 30 (14-36) U/L ALT 24 (4-34) U/L Alkaline Phosphatase 80 (38-126) U/L Total Protein 7.0 (6.3-8.2) g/dL Albumin 3.9 (3.5-5.0) g/dL Amylase 42 (30-110) U/L Lipase 90 (23-300) U/L Urine Color Light Yellow Urine Appearance Cloudy H (Clear) Urine pH 6.0 (5.0-8.0) Ur Specific [place] 1.013 (1.001-1.035) Urine Protein Negative (Negative) Urine Glucose (UA) Negative (Negative) Urine Ketones Negative (Negative) Urine Blood Small H (Negative) Urine Nitrite Negative (Negative) Urine Bilirubin Negative (Negative) Urine Urobilinogen <2.0 (<2.0) mg/dL Ur Leukocyte Esterase Small H (Negative) Urine RBC 3 (0-5) /hpf Urine WBC 5 (0-5) /hpf Ur Squamous Epith Cells 7 H (0-4) /hpf Urine Bacteria Rare H (None) /hpf Urine Mucus Occasional H (None) /hpf Disposition Clinical Impression: UTI (urinary tract infection), LUQ pain, Ovarian cyst Disposition: HOME SELF-CARE Condition: Good Instructions (If sedation given, give patient instructions): Urinary Tract Infection in Women (DC), Abdominal Pain (ED), Hysterectomy (DC) Additional Instructions: Please use medication as discussed. Please follow-up with OBGYN this week, contact office tomorrow as discussed to schedule appointment. I spoke with Dr. Rushing, Dr. Malloy's collegue. Request imaging reports. Please return to em ergency room if the symptoms increase or worsen or for any other concerns. Prescriptions: Cephalexin [Keflex] 500 mg PO Q12HR 5 Days #10 cap Is patient prescribed a controlled substance at d/c from ED?: No Referrals: Dolly Ventura MD [Primary Care Provider] - 1-2 days Time of Disposition: 22:12
[2019-11-25 21:28] LABS: Appearance,Urine Cloudy (Clear); Bacteria,Urine Rare /hpf; Bilirubin,Urine Negative (Negative); Blood,Urine Small (Negative); Color,Urine Light Yellow; Glucose,Urine (UA) Negative (Negative); Ketones,Urine Negative (Negative); Leukocyte Esterase,Urine Small (Negative); Mucus,Urine Occasional /hpf; Nitrite,Urine Negative (Negative); Protein,Urine Negative (Negative); RBC,Urine 3 /hpf (0-5); Specific Gravity,Urine 1.013 (1.001-1.035); Squamous Epithelial Cell,Urine 7 /hpf (0-4); Urobilinogen,Urine <2.0 mg/dL (<2.0); WBC,Urine 5 /hpf (0-5)
--- NOTE | 2019-11-25 21:29 | CT ---
EXAMINATION TYPE: CT abdomen pelvis wo con DATE OF EXAM: 11/25/2019 HISTORY: Hysterectomy 11-05-19. Left upper quadrant pain x [address] DLP: 1903.4 mGycm. Automated Exposure Control for Dose Reduction was Utilized. TECHNIQUE: CT scan of the abdomen and pelvis is performed without oral or IV contrast. COMPARISON: CT abdomen and pelvis October 09, 2019 FINDINGS: Within the limitations of a non-contrast study, the following observations are made. LUNG BASES: No significant abnormality is appreciated. LIVER/GB: Liver redemonstrated heterogeneously hypodense relative to spleen consistent with diffuse f atty infiltration. PANCREAS: No significant abnormality is seen. SPLEEN: No significant abnormality is seen. ADRENALS: No significant abnormality is seen. KIDNEYS: There are 5 calculi measuring 3 mm or smaller in size in the left kidney on current study un changed from prior. No right-sided renal calculi. No hydronephrosis or obstructing ureter calculi roya aterally. No intraluminal calculi in the poorly distended bladder. Moderate wall thickening in poorly distended bladder up to 14 mm. BOWEL: Normal-appearing appendix from base of cecum. No suspicious small or large bowel dilatation. N o suspicious wall thickening of the sigmoid colon in the pelvis. GENITAL ORGANS: Uterus now surgically absent. Some ill-defined fluid and fat stranding in the intrape ritoneal pelvis without well-formed thick walled fluid collection. Few tiny foci of free air for refe rence axial image 81 at this level. There is new 4.4 x 3.3 cm low dense or for well-circumscribed les ion in the anterior pelvis just right of midline axial image 80. LYMPH NODES: No greater than 1cm abdominal or pelvic lymph nodes are appreciated. OSSEOUS STRUCTURES: No significant abnormality is seen. OTHER: No significant additional abnormality is seen. IMPRESSION: Interval hysterectomy. Mild to moderate ill-defined fluid and fat stranding with minimal free air in the pelvis at site of hysterectomy is nonspecific and could reflect postsurgical change, inflammatory process at this level is not excluded. No thick wall drainable abscess. New 4.4 cm low dense well-defined structure anterior mid pelvis just right of midline is nonspecific, I s uspect ovarian cyst or cystic lesion. Postsurgical seromas in the differential. Developing abscess fe lt unlikely. Moderate wall thickening in poorly distended bladder could reflect acute cystitis, corre late clinically.
[2019-11-25 21:30] LABS: ALT 24 U/L (4-34); AST 30 U/L (14-36); African American GFR (CKD) >90 (>60 ml/min/1.73 sqM); Albumin 3.9 g/dL (3.5-5.0); Alkaline Phosphatase 80 U/L (38-126); Amylase 42 U/L (30-110); Anion Gap 9 mmol/L; Blood Urea Nitrogen 13 mg/dL (7-17); Carbon Dioxide 22 mmol/L (22-30); Chloride 105 mmol/L (98-107); Glucose 126 mg/dL (74-99); Non-African American GFR(CKD) >90 (>60 ml/min/1.73 sqM); Sodium 136 mmol/L (137-145); Total Bilirubin 0.8 mg/dL (0.2-1.3)
[2019-11-25 21:39] VITALS: RESP 18
[2019-11-25 21:41] LABS: Potassium 4.6 mmol/L (3.5-5.1)
[2019-11-25] MEDS ORDERED: CEPHALEXIN 500MG STARTER PACK 4 CAP BTL PO STA (22:10)
[2019-11-25 22:20] VITALS: BP 134/95; PULSE 88
== END 2019-11-25 22:23 | disposition home or self-care (01) ==
LOC: EC 20:43
DX: N39.0 Urinary tract infection, site not specified (principal); N83.209 Unspecified ovarian cyst, unspecified side; D72.829 Elevated white blood cell count, unspecified; E07.9 Disorder of thyroid, unspecified; E61.1 Iron deficiency; F17.200 Nicotine dependence, unspecified, uncomplicated; Z79.899 Other long term (current) drug therapy; Z79.890 Hormone replacement therapy; Z88.0 Allergy status to penicillin; Z90.710 Acquired absence of both cervix and uterus
CPT/HCPCS: 36415; 80053; 82150; 83690; 85025; 81001; 74176; 96374; 96361; 99284; J2270

== ENCOUNTER 2020-04-29 13:44 | Emergency (ER) | payer BC ==
[2020-04-29 13:50] VITALS: BP 119/85; PULSE 93; TEMP 97.9
[2020-04-29] MEDS ORDERED: DEXAMETHASONE SOD PHOSPHATE 10 MG/ML 1 ML VIAL IM STA (13:56)
[2020-04-29] MEDS ORDERED: FAMOTIDINE 20 MG TAB PO STA (13:56)
[2020-04-29] MEDS ORDERED: diphenhydrAMINE 50 MG CAP PO STA (13:56)
--- NOTE | 2020-04-29 14:01 | ED ---
Allergic Reaction HPI - General Chief complaint: Allergic Reaction Stated complaint: Allergic Reaction Time Seen by Provider: 04/29/20 13:51 Source: patient, RN notes reviewed Mode of arrival: ambulatory Limitations: no limitations - History of Present Illness Initial Comments: 39-year-old female presents emergency from chief complaint ALLERGIC reaction. Patient states she was stung 6 times yesterday after she stepped on a mass. Patient states that she in has increased and states that she felt like she has been throat tightness which alleviated after taking some Alavert. Patient denies any significant history of reactions of this nature. Patient states that her there is were she was stung do have significant redness and some mild discomfort. - Related Data Home Medications Medication Instructions Recorded Confirmed methIMAzole [Tapazole] 5 mg PO DAILY 12/30/15 01/10/16 Iron 18 mg PO DAILY 01/10/16 01/10/16 Previous Rx's Medication Instructions Recorded Sulfamethoxazole/Trimethoprim 1 each PO BID 14 Days #28 tablet 09/30/19 [Bactrim DS 800-160 mg] Cephalexin [Keflex] 500 mg PO Q6HR 7 Days #28 cap 10/09/19 Cephalexin [Keflex] 500 mg PO Q12HR 5 Days #10 cap 11/25/19 Famotidine [Pepcid] 20 mg PO BID #10 tablet 04/29/20 predniSONE 50 mg PO DAILY #3 tab 04/29/20 Allergies Allergy/AdvReac Type Severity Reaction Status Date / Time amoxicillin Allergy Rash/Hives Verified 11/25/19 20:48 Penicillins Allergy Rash/Hives Verified 11/25/19 20:48 Review of Systems ROS Statement: Those systems with pertinent positive or pertinent negative responses have been documented in the HPI. ROS Other: All systems not noted in ROS Statement are negative. Past Medical History Past Medical History: Thyroid Disorder Additional Past Medical History / Comment(s): low iron interstital cysitis History of Any Multi-Drug Resistant Organisms: None Reported Past Surgical History: Hysterectomy, Uterine Ablation Additional Past Surgical History / Comment(s): D&C 2007, wisdom teeth, laparoscopic lap for endometriosis. Past Psychological History: Anxiety Smoking Status: Current every day smoker Past Alcohol Use History: None Reported Past Drug Use History: Marijuana General Exam Limitations: no limitations General appearance: alert, in no apparent distress Head exam: Present: atraumatic, normocephalic, normal inspection Eye exam: Present: normal appearance, PERRL, EOMI. Absent: scleral icterus, conjunctival injection, periorbital swelling ENT exam: Present: normal exam, normal oropharynx, mucous membranes moist, TM's normal bilaterally Neck exam: Present: normal inspection, full ROM. Absent: tenderness, meningismus, lymphadenopathy Respiratory exam: Present: normal lung sounds bilaterally. Absent: respiratory distress, wheezes, rales, rhonchi, stridor Cardiovascular Exam: Present: regular rate, normal rhythm, normal heart sounds. Absent: systolic murmur, diastolic murmur, rubs, gallop, clicks Skin exam: Present: other (6 areas of erythema related to insect bite) Course Vital Signs 04/29/20 13:47 Temperature 97.9 F Pulse Rate 93 Respiratory 18 Rate Blood Pressure 119/85 O2 Sat by Pulse 100 Oximetry Medical Decision Making - Medical Decision Making Patient has mild ALLERGIC reaction was given Decadron, Benadryl. Patient is improving patient be discharged in stable condition. Disposition Clinical Impression: Allergic reaction to insect sting Disposition: HOME SELF-CARE Condition: Stable Instructions (If sedation given, give patient instructions): General Allergic Reaction (ED), Insect Bite or Sting (ED) Additional Instructions: Please return to the Emergency Department if symptoms worsen or any other concerns. Prescriptions: Famotidine [Pepcid] 20 mg PO BID #10 tablet predniSONE 50 mg PO DAILY #3 tab Is patient prescribed a controlled substance at d/c from ED?: No Referrals: Dolly Ventura MD [Primary Care Provider] - 1-2 days Time of Disposition: 14:01
[2020-04-29 14:06] VITALS: RESP 14
== END 2020-04-29 14:06 | disposition home or self-care (01) ==
LOC: EC 13:44
DX: T63.481A Toxic effect of venom of other arthropod, accidental (unintentional), initial encounter (principal); E07.9 Disorder of thyroid, unspecified; F17.200 Nicotine dependence, unspecified, uncomplicated; Z79.899 Other long term (current) drug therapy; Z88.0 Allergy status to penicillin
CPT/HCPCS: 99283; 96372; J1100

== ENCOUNTER 2020-07-20 14:37 | Emergency (ER) | payer BC ==
[2020-07-20 14:55] VITALS: TEMP 97.5
[2020-07-20] MEDS ORDERED: ONDANSETRON 4 MG/2 ML VIAL IVP STA (15:09)
[2020-07-20] MEDS ORDERED: SODIUM CHLORIDE 0.9% 500 ML 500 ML IV STA (15:09)
--- NOTE | 2020-07-20 15:23 | ED ---
Abdominal Pain HPI - General Chief Complaint: Abdominal Pain Stated Complaint: Poss Kidney Stones Time Seen by Provider: 07/20/20 15:02 Source: patient Mode of arrival: ambulatory Limitations: no limitations - History of Present Illness Initial Comments: Patient is a 39-year-old female presenting to the emergency Department with complaints of left-sided abdominal pain has been increasing over the past 2 days. She has been having some mild dysuria. She does have history kidney stones and she feels like this is similar. She also has a history of in terstitial cystitis so does not know if this is a UTI or her normal symptoms. She denies any fever, chills. She states she did wake up last night with sweats. She denies any vomiting or diarrhea. She does admit to some mild nausea. She states her pain is lower at this time, about a 3/10. She states the pain and does get more intense at times. She denies any hematuria. She does admit to history of hysterectomy, no other abdominal surgeries. She has no further complaints. Upon arrival to the ER her vitals are stable. - Related Data Home Medications Medication Instructions Recorded Confirmed methIMAzole [Tapazole] 5 mg PO DAILY 12/30/15 01/10/16 Iron 18 mg PO DAILY 01/10/16 01/10/16 Previous Rx's Medication Instructions Recorded Sulfamethoxazole/Trimethoprim 1 each PO BID 14 Days #28 tablet 09/30/19 [Bactrim DS 800-160 mg] Cephalexin [Keflex] 500 mg PO Q6HR 7 Days #28 cap 10/09/19 Cephalexin [Keflex] 500 mg PO Q12HR 5 Days #10 cap 11/25/19 Famotidine [Pepcid] 20 mg PO BID #10 tablet 04/29/20 predniSONE 50 mg PO DAILY #3 tab 04/29/20 Allergies Allergy/AdvReac Type Severity Reaction Status Date / Time amoxicillin Allergy Rash/Hives Verified 07/20/20 14:55 Penicillins Allergy Rash/Hives Verified 07/20/20 14:55 Review of Systems ROS Statement: Those systems with pertinent positive or pertinent negative responses have been documented in the HPI. ROS Other: All systems not noted in ROS Statement are negative. Past Medical History Past Medical History: Thyroid Disorder Additional Past Medical History / Comment(s): low iron interstital cysitis , kidney stones History of Any Multi-Drug Resistant Organisms: None Reported Past Surgical History: Hysterectomy, Uterine Ablation Additional Past Surgical History / Comment(s): D&C 2007, wisdom teeth, laparoscopic lap for endometriosis. Past Psychological History: Anxiety Smoking Status: Current every day smoker Past Alcohol Use History: None Reported Past Drug Use History: Marijuana General Exam - General Exam Comments Initial Comments: GENERAL: Patient is well-developed and well-nourished. Patient is nontoxic and in no acute distress. HEAD: Atraumatic, normocephalic. EYES: Pupils equal round and reactive to light, extraocular movements intact, sclera anicteric, conjunctiva are normal. Eyelids were unremarkable. ENT: TMs normal, nares patent, oropharynx clear without exudates. Moist mucous membranes. NECK: Normal range of motion, supple without lymphadenopathy or JVD. LUNGS: Unlabored respirations. Breath sounds clear to auscultation bilaterally and equal. No wheezes rales or rhonchi. HEART: Regular rate and rhythm without murmurs, rubs or gallops. ABDOMEN: Mild left-sided abdominal pain. Soft, normoactive bowel sounds. No guarding, no rebound. No masses appreciated. : Deferred MUSCULOSKELETAL: Normal extremities with adequate strength and normal range of motion, no pitting or edema. No clubbing or cyanosis. NEUROLOGICAL: Patient is alert and oriented x 3. Motor and sensory are also intact. Cranial nerves II through XII grossly intact. Symmetrical smile. Normal speech, normal gait. PSYCH: Normal mood, normal affect. SKIN: Warm, Dry, normal turgor, no rashes or lesions noted. Limitations: no limitations Course Vital Signs 07/20/20 07/20/20 07/20/20 14:51 15:54 15:55 Temperature 97.5 F L Pulse Rate 112 H 77 Respiratory 20 18 Rate Blood Pressure 119/87 113/71 O2 Sat by Pulse 98 Oximetry Medical Decision Making - Medical Decision Making Patient is a 39-year-old female here for left-sided abdominal pain for the past 2 days. She does have history kidney stones and this feels similar. Her vitals are stable. Patient's lab work is unremarkable, normal kidney function. Urine shows no evidence of infection, no hematuria. I did do a CT of the abdomen, does show renal stones bilaterally, no distal ureteral stone present. Patient received Zofran and some fluids. I discussed these findings with her. Is most likely renal colic, gas pains. She is stable for discharge. She is in agreement with this plan of care. She can follow up with urology. She states she does have a name and number to a urologist but just needs to contact them again. Return parameters were discussed with the patient she verbalized understanding. - Lab Data Result diagrams: 07/20/20 15:21 07/20/20 15:21 Lab Results 07/20/20 07/20/20 07/20/20 Range/Units 15:21 15:21 15:21 WBC 9.5 (3.8-10.6) k/uL RBC 4.80 (3.80-5.40) m/uL Hgb 15.4 (11.4-16.0) gm/dL Hct 47.3 H (34.0-46.0) % MCV 98.4 (80.0-100.0) fL MCH 32.2 (25.0-35.0) pg MCHC 32.7 (31.0-37.0) g/dL RDW 12.6 (11.5-15.5) % Plt Count 258 (150-450) k/uL Neutrophils % 68 % Lymphocytes % 22 % Monocytes % 6 % Eosinophils % 3 % Basophils % 1 % Neutrophils # 6.4 (1.3-7.7) k/uL Lymphocytes # 2.0 (1.0-4.8) k/uL Monocytes # 0.5 (0-1.0) k/uL Eosinophils # 0.3 (0-0.7) k/uL Basophils # 0.1 (0-0.2) k/uL Sodium 139 (137-145) mmol/L Potassium 4.5 (3.5-5.1) mmol/L Chloride 109 H (98-107) mmol/L Carbon Dioxide 24 (22-30) mmol/L Anion Gap 6 mmol/L BUN 13 (7-17) mg/dL Creatinine 0.55 (0.52-1.04) mg/dL Est GFR (CKD-EPI)AfAm >90 (>60 ml/min/1.73 sqM) Est GFR (CKD-EPI)NonAf >90 (>60 ml/min/1.73 sqM) Glucose 82 (74-99) mg/dL Calcium 9.3 (8.4-10.2) mg/dL Total Bilirubin 0.7 (0.2-1.3) mg/dL AST 22 (14-36) U/L ALT 21 (4-34) U/L Alkaline Phosphatase 71 (38-126) U/L Total Protein 7.3 (6.3-8.2) g/dL Albumin 4.2 (3.5-5.0) g/dL Lipase 118 (23-300) U/L Urine Color Colorless Urine Appearance Clear (Clear) Urine pH 6.5 (5.0-8.0) Ur Specific [place] 1.004 (1.001-1.035) Urine Protein Negative (Negative) Urine Glucose (UA) Negative (Negative) Urine Ketones Negative (Negative) Urine Blood Negative (Negative) Urine Nitrite Negative (Negative) Urine Bilirubin Negative (Negative) Urine Urobilinogen <2.0 (<2.0) mg/dL Ur Leukocyte Esterase Negative (Negative) Disposition Clinical Impression: Left lateral abdominal pain Disposition: HOME SELF-CARE Condition: Stable Instructions (If sedation given, give patient instructions): Abdominal Pain (ED ) Additional Instructions: Please return to the Emergency Department if symptoms worsen or any other concerns. Workup and CT scan today was normal. Continue to increase fluid intake. Follow up with urology as discussed. Is patient prescribed a controlled substance at d/c from ED?: No Referrals: Dolly Ventura MD [Primary Care Provider] - 1-2 days
[2020-07-20 15:32] LABS: Appearance,Urine Clear (Clear); Basophils # (A) 0.1 k/uL (0-0.2); Basophils % (A) 1 %; Bilirubin,Urine Negative (Negative); Blood,Urine Negative (Negative); Color,Urine Colorless; Eosinophils # (A) 0.3 k/uL (0-0.7); Eosinophils % (A) 3 %; Glucose,Urine (UA) Negative (Negative); HCT 47.3 % (34.0-46.0); HGB 15.4 gm/dL (11.4-16.0); Ketones,Urine Negative (Negative); Leukocyte Esterase,Urine Negative (Negative); Lymphocytes % (A) 22 %; MCH 32.2 pg (25.0-35.0); MCHC 32.7 g/dL (31.0-37.0); MCV 98.4 fL (80.0-100.0); Mean Platelet Volume 9.2; Monocytes # (A) 0.5 k/uL (0-1.0); Monocytes % (A) 6 %; Neutrophils # (A) 6.4 k/uL (1.3-7.7); Neutrophils % (A) 68 %; Nitrite,Urine Negative (Negative); PH, Urine 6.5 (5.0-8.0); Platelet Count 258 k/uL (150-450); Protein,Urine Negative (Negative); RDW 12.6 % (11.5-15.5); Specific Gravity,Urine 1.004 (1.001-1.035); Urobilinogen,Urine <2.0 mg/dL (<2.0); WBC 9.5 k/uL (3.8-10.6)
[2020-07-20 15:42] LABS: ALT 21 U/L (4-34); AST 22 U/L (14-36); African American GFR (CKD) >90 (>60 ml/min/1.73 sqM); Albumin 4.2 g/dL (3.5-5.0); Alkaline Phosphatase 71 U/L (38-126); Anion Gap 6 mmol/L; Blood Urea Nitrogen 13 mg/dL (7-17); Calcium 9.3 mg/dL (8.4-10.2); Carbon Dioxide 24 mmol/L (22-30); Chloride 109 mmol/L (98-107); Glucose 82 mg/dL (74-99); Non-African American GFR(CKD) >90 (>60 ml/min/1.73 sqM); Potassium 4.5 mmol/L (3.5-5.1); Sodium 139 mmol/L (137-145); Total Bilirubin 0.7 mg/dL (0.2-1.3); Total Protein 7.3 g/dL (6.3-8.2)
[2020-07-20 15:55] VITALS: PULSE 77; RESP 18
[2020-07-20 15:56] VITALS: BP 113/71
--- NOTE | 2020-07-20 16:01 | CT ---
EXAMINATION TYPE: CT abdomen pelvis wo con DATE OF EXAM: 07/20/2020 COMPARISON: 11/25/2019 HISTORY: left flank pain, hx of stones CT DLP: 1621.4 mGycm Automated exposure control for dose reduction was used. Images were obtained from the diaphragm to the floor the pelvis with no contrast. Lung bases are clear. There is no pleural effusion. Heart size is normal. There is no pericardial eff usion. Liver spleen stomach pancreas gallbladder appear normal. Bile ducts are not dilated. 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 Unchanged. Kidneys have normal size. There is no hydronephrosis. Ureters are not dilated. There are a few calculi in the rig ht kidney measuring up to 2 mm. There are several calculi in the left kidney measuring up to almost 4 mm. There is no evidence of solid renal mass. Appendix appears normal. There is no retroperitoneal a denopathy. Bladder distends smoothly. There is no evidence of free fluid in the pelvis. There is no inguinal her prashant. There is no evidence of pelvic mass. There is no evidence of calculus in the bladder. There is no mesenteric edema. There is no ascites or free air. There is no bowel obstruction. Lumbar vertebra have normal alignment. Disc spaces are fairly normal. There is no compression fractur e. The bony pelvis is intact. IMPRESSION: Multiple bilateral nonobstructing renal calculi appear increased compared to old CT scan.
== END 2020-07-20 16:31 | disposition home or self-care (01) ==
LOC: EC 14:37
DX: R10.9 Unspecified abdominal pain (principal); R30.0 Dysuria; R11.0 Nausea; N20.0 Calculus of kidney; F17.200 Nicotine dependence, unspecified, uncomplicated; Z79.899 Other long term (current) drug therapy; Z88.0 Allergy status to penicillin
CPT/HCPCS: 36415; 80053; 83690; 85025; 81003; 74176; 99284; 96374; 96361; J2405

== ENCOUNTER 2020-12-07 16:09 | Emergency (ER) | payer BC ==
[2020-12-07 16:37] VITALS: TEMP 97.9
[2020-12-07] MEDS ORDERED: SODIUM CHLORIDE 0.9% 1,000 ML IV STA (17:08)
--- NOTE | 2020-12-07 17:23 | ED ---
General Adult HPI - General Chief complaint: Dizziness Stated complaint: Near Syncope, Shaking Time Seen by Provider: 12/07/20 16:42 Source: patient Mode of arrival: ambulatory Limitations: no limitations - History of Present Illness Initial comments: Dictation was produced using [employer] dictation software. please excuse any grammatical, word or spelling errors. This patient was cared for during a federal and state declared state of emergency secondary to Covid 19 Chief Complaint: 39-year-old female presents with dizziness, fatigue. History of Present Illness: 39-year-old female presents with chief complaint of dizziness, facial tingling, lethargy. She received the Covid 19 Moderna vaccine yesterday. Patient has no significant comorbidities. She denies any vomiting but does complain of some nausea. She has not had actual Covid 19 prior to the vaccine. The ROS documented in this emergency department record has been reviewed and confirmed by me. Those systems with pertinent positive or negative responses have been documented in the HPI. All other systems are other negative and/or noncontributory. PHYSICAL EXAM: General Impression: Alert and oriented x3, not in acute distress, well- appearing, smiling HEENT: Normocephalic atraumatic, extra-ocular movements intact, pupils equal and reactive to light bilaterally, mucous membranes moist. Cardiovascular: Heart regular rate and rhythm Chest: Able to complete full sentences, no retractions, no tachypnea Abdomen: abdomen soft, non-tender, non-distended, no organomegaly Musculoskeletal: Pulses present and equal in all extremities, no peripheral edema Motor: no focal deficits noted Neurological: CN II-XII grossly intact, no focal motor or sensory deficits noted Skin: Intact with no visualized rashes Psych: Normal affect and mood ED course: 39-year-old feel presents with adverse effects from Covid 19 moderna vaccine. Vital signs upon arrival are within acceptable limits. Physical examination is benign. Reassurance provided. She wanted to have basic labs performed. Patient also given intravenous fluids. Patient be discharged.Laboratory evaluation tape 5 be unremarkable. Patient given intravenous fluids. Patient reevaluated at bedside by a bee stable medical condition. Patient be discharged. Reassurance is provided. Patient is told that these types of effects are expected after the Covid vaccine. She is asked to follow-up with her primary care physician. Return parameters discussed. - Related Data Home Medications Medication Instructions Recorded Confirmed methIMAzole [Tapazole] 5 mg PO DAILY 12/30/15 01/10/16 Iron 18 mg PO DAILY 01/10/16 01/10/16 Previous Rx's Medication Instructions Recorded Sulfamethoxazole/Trimethoprim 1 each PO BID 14 Days #28 tablet 09/30/19 [Bactrim DS 800-160 mg] Cephalexin [Keflex] 500 mg PO Q6HR 7 Days #28 cap 10/09/19 Cephalexin [Keflex] 500 mg PO Q12HR 5 Days #10 cap 11/25/19 Famotidine [Pepcid] 20 mg PO BID #10 tablet 04/29/20 predniSONE 50 mg PO DAILY #3 tab 04/29/20 Allergies Allergy/AdvReac Type Severity Reaction Status Date / Time amoxicillin Allergy Rash/Hives Verified 12/07/20 16:38 Penicillins Allergy Rash/Hives Verified 12/07/20 16:38 Review of Systems ROS Statement: Those systems with pertinent positive or pertinent negative responses have been documented in the HPI. ROS Other: All systems not noted in ROS Statement are negative. Past Medical History Past Medical History: Thyroid Disorder Additional Past Medical History / Comment(s): low iron interstital cysitis , kidney stones History of Any Multi-Drug Resistant Organisms: None Reported Past Surgical History: Hysterectomy, Uterine Ablation Additional Past Surgical History / Comment(s): D&C 2007, wisdom teeth, laparoscopic lap for endometriosis. Past Psychological History: Anxiety Smoking Status: Current every day smoker Past Alcohol Use History: None Reported Past Drug Use History: Marijuana General Exam Limitations: no limitations Course Vital Signs 12/07/20 16:34 Temperature 97.9 F Pulse Rate 95 Respiratory 18 Rate Blood Pressure 126/79 O2 Sat by Pulse 100 Oximetry Medical Decision Making - Lab Data Result diagrams: 12/07/20 17:11 12/07/20 17:11 Lab Results 12/07/20 12/07/20 Range/Units 17:11 17:11 WBC 9.2 (3.8-10.6) k/uL RBC 4.71 (3.80-5.40) m/uL Hgb 14.8 (11.4-16.0) gm/dL Hct 45.2 (34.0-46.0) % MCV 95.9 (80.0-100.0) fL MCH 31.4 (25.0-35.0) pg MCHC 32.7 (31.0-37.0) g/dL RDW 12.9 (11.5-15.5) % Plt Count 251 (150-450) k/uL MPV 9.4 Neutrophils % 77 % Lymphocytes % 16 % Monocytes % 4 % Eosinophils % 2 % Basophils % 1 % Neutrophils # 7.0 (1.3-7.7) k/uL Lymphocytes # 1.5 (1.0-4.8) k/uL Monocytes # 0.4 (0-1.0) k/uL Eosinophils # 0.1 (0-0.7) k/uL Basophils # 0.1 (0-0.2) k/uL Sodium 139 (137-145) mmol/L Potassium 4.2 (3.5-5.1) mmol/L Chloride 105 (98-107) mmol/L Carbon Dioxide 26 (22-30) mmol/L Anion Gap 8 mmol/L BUN 9 (7-17) mg/dL Creatinine 0.61 (0.52-1.04) mg/dL Est GFR (CKD-EPI)AfAm >90 (>60 ml/min/1.73 sqM) Est GFR (CKD-EPI)NonAf >90 (>60 ml/min/1.73 sqM) Glucose 104 H (74-99) mg/dL Calcium 9.5 (8.4-10.2) mg/dL Disposition Clinical Impression: Weakness Disposition: HOME SELF-CARE Condition: Good Instructions (If sedation given, give patient instructions): Dizziness (ED) Is patient prescribed a controlled substance at d/c from ED?: No Referrals: None,Stated [REFERRING] - 1-2 days Time of Disposition: 17:33
[2020-12-07 17:25] LABS: Basophils # (A) 0.1 k/uL (0-0.2); Basophils % (A) 1 %; Eosinophils # (A) 0.1 k/uL (0-0.7); Eosinophils % (A) 2 %; HCT 45.2 % (34.0-46.0); HGB 14.8 gm/dL (11.4-16.0); Lymphocytes # (A) 1.5 k/uL (1.0-4.8); Lymphocytes % (A) 16 %; MCH 31.4 pg (25.0-35.0); MCHC 32.7 g/dL (31.0-37.0); MCV 95.9 fL (80.0-100.0); Mean Platelet Volume 9.4; Monocytes # (A) 0.4 k/uL (0-1.0); Monocytes % (A) 4 %; Neutrophils % (A) 77 %; Platelet Count 251 k/uL (150-450); RBC 4.71 m/uL (3.80-5.40); RDW 12.9 % (11.5-15.5); WBC 9.2 k/uL (3.8-10.6)
[2020-12-07 17:28] LABS: African American GFR (CKD) >90 (>60 ml/min/1.73 sqM); Anion Gap 8 mmol/L; Blood Urea Nitrogen 9 mg/dL (7-17); Calcium 9.5 mg/dL (8.4-10.2); Carbon Dioxide 26 mmol/L (22-30); Chloride 105 mmol/L (98-107); Glucose 104 mg/dL (74-99); Non-African American GFR(CKD) >90 (>60 ml/min/1.73 sqM); Potassium 4.2 mmol/L (3.5-5.1); Sodium 139 mmol/L (137-145)
[2020-12-07 18:40] VITALS: BP 132/76; PULSE 77; RESP 20
== END 2020-12-07 18:41 | disposition home or self-care (01) ==
LOC: EC 16:09
DX: R53.1 Weakness (principal); F17.200 Nicotine dependence, unspecified, uncomplicated; F12.90 Cannabis use, unspecified, uncomplicated; Z87.442 Personal history of urinary calculi; Z90.710 Acquired absence of both cervix and uterus
CPT/HCPCS: 36415; 80048; 85025; 96376; 99284

== ENCOUNTER → 2020-12-22 | Outpatient (CLI) | payer BC ==
--- NOTE | 2020-12-22 16:29 | XR ---
EXAMINATION TYPE: XR ribs LT DATE OF EXAM: 12/22/2020 CLINICAL HISTORY: Pain, Fall Four views of the ribs fail demonstrate evidence for displaced rib fracture or secondary sign of rib fracture. Visualized lungs are clear. No evidence for pneumothorax. IMPRESSION: No displaced rib fractures seen. ICD 10 NO FRACTURE, INITIAL EVALUATION the others 0.16 junk the right
== END | disposition home or self-care (01) ==
LOC: RADXRMAIN 16:07
PROVIDERS: ATTEND Nurse Practitioner
DX: R07.81 Pleurodynia (principal)

== ENCOUNTER 2021-06-19 16:31 | Observation (INO) | payer BC ==
[2021-06-19 20:09] LABS: Basophils # (A) 0.1 k/uL (0-0.2); Basophils % (A) 1 %; Eosinophils # (A) 0.2 k/uL (0-0.7); Eosinophils % (A) 2 %; HCT 40.4 % (34.0-46.0); HGB 14.6 gm/dL (11.4-16.0); Lymphocytes # (A) 2.3 k/uL (1.0-4.8); Lymphocytes % (A) 22 %; MCH 35.1 pg (25.0-35.0); MCHC 36.2 g/dL (31.0-37.0); MCV 96.7 fL (80.0-100.0); Mean Platelet Volume 9.5; Monocytes # (A) 0.4 k/uL (0-1.0); Monocytes % (A) 4 %; Neutrophils # (A) 7.2 k/uL (1.3-7.7); Neutrophils % (A) 70 %; Platelet Count 247 k/uL (150-450); RBC 4.18 m/uL (3.80-5.40); RDW 13.2 % (11.5-15.5); WBC 10.3 k/uL (3.8-10.6)
[2021-06-19 20:14] LABS: ALT 26 U/L (4-34); AST 26 U/L (14-36); African American GFR (CKD) >90 (>60 ml/min/1.73 sqM); Albumin 4.1 g/dL (3.5-5.0); Alkaline Phosphatase 74 U/L (38-126); Anion Gap 8 mmol/L; Blood Urea Nitrogen 8 mg/dL (7-17); Calcium 9.5 mg/dL (8.4-10.2); Carbon Dioxide 22 mmol/L (22-30); Chloride 108 mmol/L (98-107); Glucose 100 mg/dL (74-99); INR 0.9 (<1.2); Non-African American GFR(CKD) >90 (>60 ml/min/1.73 sqM); Potassium 4.3 mmol/L (3.5-5.1); Sodium 138 mmol/L (137-145); Total Bilirubin 0.9 mg/dL (0.2-1.3); Total Protein 6.9 g/dL (6.3-8.2)
[2021-06-19 20:15] LABS: Partial Thromboplastin Time 24.7 sec (22.0-30.0)
[2021-06-19] MEDS ORDERED: HEPARIN SODIUM 1,000 UN/ML (10ML VL) IV PRN (20:56)
[2021-06-19] MEDS ORDERED: HEPARIN SODIUM 1,000 UN/ML (10ML VL) IV ONE (20:56)
[2021-06-19] MEDS ORDERED: HEPARIN SOD,PORK IN 0.45% NACL 25,000 UNIT in 0.45% NACL 1 250ML.BAG IV SCH (21:00)
--- NOTE | 2021-06-19 21:13 | XR ---
EXAMINATION TYPE: XR chest 2V DATE OF EXAM: 06/19/2021 COMPARISON: Chest radiograph 01/10/2016. HISTORY: Chest pain. TECHNIQUE: Frontal and lateral views of the chest are obtained. FINDINGS: There is no focal air space opacity, pleural effusion, or pneumothorax seen. The cardiac silhouette size is within normal limits. The osseous structures are intact. IMPRESSION: No acute cardiopulmonary process.
--- NOTE | 2021-06-19 21:51 | CT ---
EXAMINATION TYPE: CT chest angio for PE DATE OF EXAM: 06/19/2021 COMPARISON: None HISTORY: Elevated troponin. Chest pain/chest nighness. CT DLP: 616.1 mGycm Automated exposure control for dose reduction was used. CONTRAST: CT Chest for pulmonary embolism performed with with IV Contrast, patient injected with 100 mL of Isov ue 370. FINDINGS: LUNGS: The lungs are grossly clear, there is no concerning parenchymal mass or nodule identified. T here is no pleural effusion or pneumothorax seen. The tracheobronchial tree is patent. MEDIASTINUM: There is satisfactory enhancement of the pulmonary artery and its branches, there is no CT evidence for pulmonary embolism. There are no greater than 1 cm hilar or mediastinal lymph nodes. No pericardial effusion is seen. OTHER: No additional significant abnormality is seen. IMPRESSION: 1. No pulmonary embolus. 2. No acute process in the chest.
--- NOTE | 2021-06-19 22:01 | ED ---
Chest Pain HPI - General Chief Complaint: Chest Pain Stated Complaint: Chest Pain Time Seen by Provider: 06/19/21 17:40 Source: patient Mode of arrival: ambulatory Limitations: no limitations - History of Present Illness Initial Comments: 40-year-old female with past history of reflux who is seen in the emergency room for chest pain. She states that she was sitting outside at a approximately 3:30pm when she had sudden onset of chest pain. States she felt mildly short of breath. She took a Tums and the pain resolved. States that it was short-lived and only lasted for approximately 10 minutes. Reports that she panicked and came immediately to the emergency Department but upon getting here states she almost left because her pain was completely gone. She denies previous history of cardiac disease. No intravenous drug use history. Does have a family history of cardiac disease. No personal history of DVT or PE. No clotting disorders. Denies fevers, chills or cough. Did receive her second Covid vaccine the day after Labor Day. No other alleviating, precipitating or modifying factors - Related Data Home Medications Medication Instructions Recorded Confirmed Iron Chew (Unknown Strength) 1 tab PO DAILY 06/19/21 06/19/21 Omeprazole 20 mg PO DAILY PRN 06/19/21 06/19/21 hydrOXYzine HCL [Atarax] 10 mg PO HS 06/19/21 06/19/21 Previous Rx's Medication Instructions Recorded Nicotine 14Mg/24Hr Patch [Habitrol] 1 patch TRANSDERM DAILY patch 06/21/21 Allergies Allergy/AdvReac Type Severity Reaction Status Date / Time amoxicillin Allergy Rash/Hives Verified 06/19/21 21:38 Penicillins Allergy Rash/Hives Verified 06/19/21 21:38 Review of Systems ROS Statement: Those systems with pertinent positive or pertinent negative responses have been documented in the HPI. ROS Other: All systems not noted in ROS Statement are negative. EKG Findings - EKG Comments: EKG Findings:: EKG completed at 1752 demonstrates a normal sense rhythm with a ventricular rate of 67. AR interval 140. QRS 86. QTC of 429. No acute ST segment elevations or depressions. No signs of Parkinson White or Brugada. EKG at 2148 demonstrates normal sinus rhythm with a ventricular rate of 64. AR interval is 130. QRS 90. QTC of 433. No acute ST segment elevations or depressions concerning for ischemic changes Past Medical History Past Medical History: GERD/Reflux, Thyroid Disorder Additional Past Medical History / Comment(s): low iron interstital cysitis , kidney stones, endometriosis History of Any Multi-Drug Resistant Organisms: None Reported Past Surgical History: Hysterectomy, Uterine Ablation Additional Past Surgical History / Comment(s): D&C 2007, wisdom teeth, laparoscopic lap for endometriosis. Past Psychological History: Anxiety Smoking Status: Current every day smoker Past Alcohol Use History: None Reported Past Drug Use History: Marijuana General Exam Limitations: no limitations General appearance: alert, in no apparent distress Head exam: Present: atraumatic, normocephalic, normal inspection Eye exam: Present: normal appearance, PERRL, EOMI. Absent: scleral icterus, conjunctival injection, periorbital swelling ENT exam: Present: normal exam, mucous membranes moist Neck exam: Present: normal inspection. Absent: tenderness, meningismus, lymphadenopathy Respiratory exam: Present: normal lung sounds bilaterally. Absent: respiratory distress, wheezes, rales, rhonchi, stridor Cardiovascular Exam: Present: regular rate, normal rhythm, normal heart sounds. Absent: systolic murmur, diastolic murmur, rubs, gallop, clicks GI/Abdominal exam: Present: soft, normal bowel sounds. Absent: distended, t enderness, guarding, rebound, rigid Extremities exam: Present: normal inspection, full ROM, normal capillary refill. Absent: tenderness, pedal edema, joint swelling, calf tenderness Back exam: Present: normal inspection Neurological exam: Present: alert, oriented X3, CN II-XII intact Psychiatric exam: Present: normal affect, normal mood Skin exam: Present: warm, dry, intact, normal color. Absent: rash Course Vital Signs 06/19/21 06/19/21 06/19/21 17:37 22:00 23:51 Temperature 98.2 F 97.6 F Pulse Rate 72 78 66 Respiratory 18 18 18 Rate Blood Pressure 125/84 125/78 110/59 O2 Sat by Pulse 98 99 99 Oximetry Chest Pain MDM - MDM On arrival patient is placed into room 10. A thorough history and physical exam was performed. 12-lead EKG was performed and there are no signs of ST elevation. IV is established. Laboratory studies were conducted. Troponin elevated at 0.226. Chest x-ray was performed which demonstrates no acute process. Patient is additionally sent back for a CTA which demonstrates no acute intrathoracic process. Patient is given a dose of heparin as she has no contraindications. She is started on a heparin drip. I did call and speak with Dr. Lisa who agreed to the current treatment of the patient. Spoke with Dr. Finley who agreed to admit the patient. Patient remained pain-free awaiting a bed on the floor Critical Care Time Critical Care Time: Yes Critical Care Time: 32 minutes for nstemi, heparin gtt Disposition Clinical Impression: Chest pain, Acute non-ST elevation myocardial infarction (NSTEMI) Disposition: ADMITTED IP TO THIS HOSP Condition: Serious Is patient prescribed a controlled substance at d/c from ED?: No Decision to Admit Reason: Admit from EC Decision Date: 06/19/21 Decision Time: 22:03
[2021-06-19] MEDS ORDERED: NALOXONE 0.4 MG/ML 1 ML VIAL IV PRN (22:03)
[2021-06-19] MEDS ORDERED: ASPIRIN 81 MG PO STA (22:06)
[2021-06-20 04:16] LABS: Basophils # (A) 0.1 k/uL (0-0.2); Basophils % (A) 1 %; Eosinophils # (A) 0.2 k/uL (0-0.7); Eosinophils % (A) 2 %; HGB 13.9 gm/dL (11.4-16.0); Lymphocytes # (A) 2.9 k/uL (1.0-4.8); Lymphocytes % (A) 33 %; MCH 31.6 pg (25.0-35.0); MCHC 32.3 g/dL (31.0-37.0); Mean Platelet Volume 9.8; Monocytes # (A) 0.4 k/uL (0-1.0); Monocytes % (A) 5 %; Neutrophils # (A) 5.2 k/uL (1.3-7.7); Neutrophils % (A) 58 %; Platelet Count 230 k/uL (150-450); RBC 4.38 m/uL (3.80-5.40); RDW 12.6 % (11.5-15.5); WBC 8.9 k/uL (3.8-10.6)
[2021-06-20 04:19] LABS: African American GFR (CKD) >90 (>60 ml/min/1.73 sqM); Anion Gap 6 mmol/L; Blood Urea Nitrogen 8 mg/dL (7-17); Calcium 9.1 mg/dL (8.4-10.2); Carbon Dioxide 23 mmol/L (22-30); Chloride 108 mmol/L (98-107); Glucose 105 mg/dL (74-99); Non-African American GFR(CKD) >90 (>60 ml/min/1.73 sqM); Potassium 4.2 mmol/L (3.5-5.1); Sodium 137 mmol/L (137-145)
[2021-06-20 04:28] LABS: Partial Thromboplastin Time 30.6 sec (22.0-30.0); Prothrombin Time 10.4 sec (9.0-12.0)
[2021-06-20] MEDS ORDERED: PANTOPRAZOLE 40 MG TABLET PO PRN (09:00)
[2021-06-20] MEDS ORDERED: ALPRAZolam 0.25 MG TAB PO PRN (09:01)
[2021-06-20] MEDS: FERROUS SULFATE 325 MG TAB PO SCH (09:12)
--- NOTE | 2021-06-20 10:32 | P.CRDCN ---
History of Present Illness Consult date: 06/20/21 Consult reason: non-Q-wave IN History of present illness: History of present illness: This is a 40-year-old female with past medical history of gastroesophageal reflux disease and anxiety. Patient states that she developed chest pain in the middle part of her chest going up her esophagus felt like a gas bubble but she also developed sweating and a little shortness of breath. She states she was not sure if it was related to the pain or if she was panicking. She does give history of panic attacks and feels anxious. She has had left shoulder pain on and off for some time and did experience pain in her left shoulder and this has continued. She took some Tums at home and pain was relieved by the time she came into the hospital. She states she now feels tired and has left shoulder pain. She denies any history of cardiac problems. Father had history of hypertension diabetes. Mother has history of pulmonary embolism and IN. Marty gonzalez is a smoker one pack per day for 19 years and uses marijuana on a daily basis. No illicit drug use or alcohol use. She denies having any chest pain with any recent activity. Patient was found to be afebrile, heart rate in the 70s, blood pressure 145/84, pulse ox 98% on room air. EKG sinus rhythm with no acute ST changes. Chest x-ray reveals no acute cardio pulmonary process. CT of the chest reveals no pulmonary embolus. No acute process in the chest. Troponins 0.226, 0.207, 0.123. CBC unremarkable. Creatinine 0.53, CMP unremarkable. Coronavirus not detected. Patient was started on heparin drip. Review Of Systems: Constitutional: No fever, no chills. No weakness, fatigue or lethargy. EENT: No headache. No dizziness. Lungs: No shortness of breath, cough, no sputum production. No wheezing. Cardiovascular: Resolved chest pain, no lower extremity edema. No palpitations. No paroxysmal nocturnal dyspnea. No orthopnea. No lightheadedness or dizziness. No syncopal episodes. Abdominal: No abdominal pain. No nausea, vomiting. No diarrhea. No constipation. No bloody or tarry stools.. No loss of appetite. Musculoskeletal: No myalgias. No muscle weakness, no gait dysfunction, no frequent falls. No back pain. No neck pain.reports left shoulder pain Integumentary: No wounds. No rash. Neurologic: No aphasia. No facial droop. No change in mentation. No head injury. No headache. No paralysis. No paresthesia. Psychiatric: No depression. Reports anxiety. Endocrine: No abnormal blood sugars. Physical examination: Gen: This is a a 40-year-old morbidly obese female. She is resting in bed appears to be comfortable and in no acute distress. VS: Afebrile, heart rate mostly running 60s to 80s up to 114. surveillance system monitor has been a sinus rhythm. Blood pressure 131/64, pulse ox 97%. HEENT: Head is atraumatic, normocephalic. Pupils equal, round. Sclerae is anicteric. NECK: Supple. No JVD. No lymphadenopathy. No thyromegaly. LUNGS: Clear to auscultation. No wheezes or rhonchi. No intercostal retractions. HEART: Regular rate and rhythm. No murmur. No chest wall tenderness. ABDOMEN: Soft. Bowel sounds are present. No masses. No tenderness. No epigastric tenderness. EXTREMITIES: No pedal edema. No calf tenderness. Dorsalis pedis +2 roya aterally. NEUROLOGICAL: Patient is awake, alert and oriented x3. Cranial nerves 2 through 12 are grossly intact. Assessment: Possible non-ST elevated myocardial infarction Gastroesophageal reflux disease Active tobacco use and dependence Daily marijuana use Plan: Continue heparin drip, aspirin Obtain 2-D echocardiogram and Doppler study to assess cardiac structure and function Will review echocardiogram and determine if patient needs to go for heart catheterization Further recommendations to follow based upon clinical course Thank you kindly for this consultation. Nurse practitioner note has been reviewed, I agree with documented findings and plan of care. Patient was seen and examined. Past Medical History Past Medical History: GERD/Reflux, Thyroid Disorder Additional Past Medical History / Comment(s): low iron interstital cysitis , kidney stones, endometriosis History of Any Multi-Drug Resistant Organisms: None Reported Past Surgical History: Hysterectomy, Uterine Ablation Additional Past Surgical History / Comment(s): D&C 2007, wisdom teeth, laparoscopic lap for endometriosis. Past Anesthesia/Blood Transfusion Reactions: No Reported Reaction Past Psychological History: Anxiety Smoking Status: Smoker, current status unknown Past Alcohol Use History: None Reported Past Drug Use History: Marijuana Medications and Allergies Home Medications Medication Instructions Recorded Confirmed Type Iron Chew (Unknown Strength) 1 tab PO DAILY 06/19/21 06/19/21 History Omeprazole 20 mg PO DAILY PRN 06/19/21 06/19/21 History hydrOXYzine HCL [Atarax] 10 mg PO HS 06/19/21 06/19/21 History Allergies Allergy/AdvReac Type Severity Reaction Status Date / Time amoxicillin Allergy Rash/Hives Verified 06/19/21 21:38 Penicillins Allergy Rash/Hives Verified 06/19/21 21:38 Physical Exam Vitals: Vital Signs Temp Pulse Pulse Resp BP BP Pulse Ox 06/20/21 08:00 97.6 F 66 17 131/64 97 06/20/21 04:00 73 18 116/77 98 06/20/21 02:00 65 18 06/20/21 01:23 97.8 F 65 18 121/59 99 06/19/21 23:51 97.6 F 66 18 110/59 99 06/19/21 22:00 78 18 125/78 99 06/19/21 17:37 98.2 F 72 18 125/84 98 Intake and Output 06/19/21 06/20/21 06/20/21 22:59 06:59 14:59 Intake Total 60.833 Balance 60.833 Intake: Intake, IV Titration 60.833 Amount Heparin Sod,Pork in 0.45% 60.833 NaCl 25,000 unit In 0.45 % NaCl 1 250ml.bag @ 8. 105 UNITS/KG/HR 10 mls/hr IV .Q24H [facility] Rx#: [id number] Other: Voiding Method Toilet # Voids 1 Weight 123.377 kg 130 kg Results 06/20/21 11:15 06/20/21 11:15 Cardiac Enzymes 06/19/21 06/19/21 06/20/21 Range/Units 19:54 19:54 00:38 AST 26 (14-36) U/L Troponin I 0.226 H* 0.207 H* (0.000-0.034) ng/mL 06/20/21 Range/Units 03:31 AST (14-36) U/L Troponin I 0.123 H* (0.000-0.034) ng/mL Coagulation 06/19/21 06/20/21 Range/Units 19:54 03:31 PT 10.0 10.4 (9.0-12.0) sec APTT 24.7 30.6 H (22.0-30.0) sec CBC 06/19/21 06/20/21 Range/Units 19:54 03:31 WBC 10.3 8.9 (3.8-10.6) k/uL RBC 4.18 4.38 (3.80-5.40) m/uL Hgb 14.6 13.9 (11.4-16.0) gm/dL Hct 40.4 43.0 (34.0-46.0) % Plt Count 247 230 (150-450) k/uL Comprehensive Metabolic Panel 06/19/21 06/20/21 Range/Units 19:54 03:31 Sodium 138 137 (137-145) mmol/L Potassium 4.3 4.2 (3.5-5.1) mmol/L Chloride 108 H 108 H (98-107) mmol/L Carbon Dioxide 22 23 (22-30) mmol/L BUN 8 8 (7-17) mg/dL Creatinine 0.53 0.54 (0.52-1.04) mg/dL Glucose 100 H 105 H (74-99) mg/dL Calcium 9.5 9.1 (8.4-10.2) mg/dL AST 26 (14-36) U/L ALT 26 (4-34) U/L Alkaline Phosphatase 74 (38-126) U/L Total Protein 6.9 (6.3-8.2) g/dL Albumin 4.1 (3.5-5.0) g/dL Current Medications Generic Name Dose Route Start Last Admin Trade Name Zackaryq PRN Reason Stop Dose Admin Alprazolam 0.25 mg 06/20/21 09:01 Alprazolam 0.25 Mg Tab PO QID PRN Anxiety Ferrous Sulfate 325 mg 06/20/21 09:30 06/20/21 09:12 Ferrous Sulfate 325 Mg Tab PO 325 mg DAILY JASWINDER Administration Heparin Sodium (Porcine) 0 unit 06/19/21 20:56 Heparin Sodium 1,000 Un/Ml (10ml Vl) IV PER PROTOCOL PRN Low PTT Protocol Hydroxyzine HCl 10 mg 06/20/21 21:00 Hydroxyzine Hcl 10 Mg Tab PO HS JASWINDER Heparin Sodium/Sodium Chloride 250 mls @ 10 mls/hr 06/19/21 21:00 06/20/21 04:58 25,000 unit/ Sodium Chloride IV 11.1 units/kg/hr .Q24H JASWINDER 13.695 mls/hr Titration Protocol 8.105 UNITS/KG/HR Naloxone HCl 0.2 mg 06/19/21 22:03 Naloxone 0.4 Mg/Ml 1 Ml Vial IV Q2M PRN Opioid Reversal Pantoprazole Sodium 40 mg 06/20/21 09:00 Pantoprazole 40 Mg Tablet PO DAILY PRN ACID REFLUX Intake and Output 06/19/21 06/20/21 06/20/21 22:59 06:59 14:59 Intake Total 60.833 Balance 60.833 Intake: Intake, IV Titration 60.833 Amount Heparin Sod,Pork in 0.45% 60.833 NaCl 25,000 unit In 0.45 % NaCl 1 250ml.bag @ 8. 105 UNITS/KG/HR 10 mls/hr IV .Q24H [facility] Rx#: [id number] Other: Voiding Method Toilet # Voids 1 Weight 123.377 kg 130 kg 06/20/21 03:31 06/20/21 03:31
[2021-06-20 11:27] LABS: Basophils # (A) 0.1 k/uL (0-0.2); Basophils % (A) 1 %; Eosinophils # (A) 0.1 k/uL (0-0.7); Eosinophils % (A) 2 %; HCT 41.3 % (34.0-46.0); HGB 14.1 gm/dL (11.4-16.0); Lymphocytes # (A) 1.6 k/uL (1.0-4.8); Lymphocytes % (A) 27 %; MCH 32.6 pg (25.0-35.0); MCHC 34.2 g/dL (31.0-37.0); MCV 95.5 fL (80.0-100.0); Mean Platelet Volume 9.7; Monocytes # (A) 0.3 k/uL (0-1.0); Monocytes % (A) 5 %; Neutrophils # (A) 3.9 k/uL (1.3-7.7); Neutrophils % (A) 64 %; Platelet Count 256 k/uL (150-450); RBC 4.32 m/uL (3.80-5.40); WBC 6.1 k/uL (3.8-10.6)
--- NOTE | 2021-06-20 11:50 | P.HPIM ---
History of Present Illness H&P Date: 06/20/21 Chief Complaint: Chest pain Is is a 40-year-old female patient of Dr. Ventura who presented with episode of chest pain. Patient reports that she was sitting outside when she had a sudden episode of chest pain. Patient also reports she had mild shortness of breath. At that time patient took Tums and the pain resolved patient reports the pain lasted only approximately 10 minutes but she decided to come the ER for further evaluation. Patient has a past medical history of GERD thyroid disorder kidney stones endometriosis and current every day smoker. Chest x-ray completed showing no acute pulmonary process. Chest CTA completed showing no pulmonary embolus no acute process in the chest. Troponins elevated at 0.226, 0.207 and 0.123. Patient was started on heparin drip and cardiology services were consulted. At this time patient is resting comfortably in bed. Patient denies any chest pain or shortness of breath. Patient denies nausea vomiting or diarrhea. Patient denies any urinary burning or frequency Review of Systems Please refer to HPI otherwise unremarkable Past Medical History Past Medical History: GERD/Reflux, Thyroid Disorder Additional Past Medical History / Comment(s): low iron interstital cysitis , kidney stones, endometriosis History of Any Multi-Drug Resistant Organisms: None Reported Past Surgical History: Hysterectomy, Uterine Ablation Additional Past Surgical History / Comment(s): D&C 2007, wisdom teeth, laparoscopic lap for endometriosis. Past Anesthesia/Blood Transfusion Reactions: No Reported Reaction Past Psychological History: Anxiety Smoking Status: Smoker, current status unknown Past Alcohol Use History: None Reported Past Drug Use History: Marijuana Medications and Allergies Home Medications Medication Instructions Recorded Confirmed Type Iron Chew (Unknown Strength) 1 tab PO DAILY 06/19/21 06/19/21 History Omeprazole 20 mg PO DAILY PRN 06/19/21 06/19/21 History hydrOXYzine HCL [Atarax] 10 mg PO HS 06/19/21 06/19/21 History Allergies Allergy/AdvReac Type Severity Reaction Status Date / Time amoxicillin Allergy Rash/Hives Verified 06/19/21 21:38 Penicillins Allergy Rash/Hives Verified 06/19/21 21:38 Physical Exam Vitals: Vital Signs Temp Pulse Pulse Resp BP BP Pulse Ox 06/20/21 08:00 97.6 F 66 17 131/64 97 06/20/21 04:00 73 18 116/77 98 06/20/21 02:00 65 18 06/20/21 01:23 97.8 F 65 18 121/59 99 06/19/21 23:51 97.6 F 66 18 110/59 99 06/19/21 22:00 78 18 125/78 99 06/19/21 17:37 98.2 F 72 18 125/84 98 Intake and Output 06/19/21 06/20/21 06/20/21 22:59 06:59 14:59 Intake Total 60.833 Balance 60.833 Intake: Intake, IV Titration 60.833 Amount Heparin Sod,Pork in 0.45% 60.833 NaCl 25,000 unit In 0.45 % NaCl 1 250ml.bag @ 8. 105 UNITS/KG/HR 10 mls/hr IV .Q24H [facility] Rx#: [id number] Other: # Voids 1 Weight 123.377 kg 130 kg Head normocephalic Neck supple Lungs clear to auscultation bilaterally no wheezing or crackles Heart regular rate and rhythm S1-S2, no rub or gallop Abdomen is soft nontender nondistended positive bowel sounds no hepatosplenomegaly Extremities no edema Neuro alert and orientated to 3 Results CBC & Chem 7: 06/20/21 11:15 06/20/21 03:31 Labs: Abnormal Lab Results - Last 24 Hours (Table) 06/19/21 06/19/21 06/19/21 Range/Units 19:54 19:54 19:54 MCH 35.1 H (25.0-35.0) pg APTT (22.0-30.0) sec Chloride 108 H (98-107) mmol/L Glucose 100 H (74-99) mg/dL Troponin I 0.226 H* (0.000-0.034) ng/mL 06/20/21 06/20/21 06/20/21 Range/Units 00:38 03:31 03:31 MCH (25.0-35.0) pg APTT 30.6 H (22.0-30.0) sec Chloride (98-107) mmol/L Glucose (74-99) mg/dL Troponin I 0.207 H* 0.123 H* (0.000-0.034) ng/mL 06/20/21 Range/Units 03:31 MCH (25.0-35.0) pg APTT (22.0-30.0) sec Chloride 108 H (98-107) mmol/L Glucose 105 H (74-99) mg/dL Troponin I (0.000-0.034) ng/mL Assessment and Plan Assessment: 1. Non-ST elevated myocardial infarction 2. History of GERD 3. Nicotine dependence. Patient educated greater than 3 minutes regarding smoking cessation. Nicotine patch will be ordered 4. Marijuana use 5. Generalized anxiety At this time patient has been admitted cardiology service is consulted 2-D echo has been ordered Patient retained on heparin drip Awaiting further plan per cardiology Time with Patient: Greater than 30 (Greater than 60% of the total time spent in counseling and coordination of care)
[2021-06-20 11:52] LABS: ALT 25 U/L (4-34); AST 28 U/L (14-36); African American GFR (CKD) >90 (>60 ml/min/1.73 sqM); Albumin 3.8 g/dL (3.5-5.0); Alkaline Phosphatase 67 U/L (38-126); Anion Gap 6 mmol/L; Blood Urea Nitrogen 7 mg/dL (7-17); Calcium 8.9 mg/dL (8.4-10.2); Carbon Dioxide 21 mmol/L (22-30); Chloride 111 mmol/L (98-107); Glucose 108 mg/dL (74-99); Non-African American GFR(CKD) >90 (>60 ml/min/1.73 sqM); Sodium 138 mmol/L (137-145); Total Bilirubin 1.2 mg/dL (0.2-1.3); Total Protein 6.7 g/dL (6.3-8.2)
[2021-06-20 12:07] LABS: Potassium 4.5 mmol/L (3.5-5.1)
[2021-06-20 12:19] VITALS: PULSE 60
[2021-06-20] MEDS ORDERED: ACETAMINOPHEN TAB 500 MG TAB PO PRN (13:20)
[2021-06-20] MEDS ORDERED: SODIUM CHLORIDE 0.9% 1,000 ML IV ONE (13:45)
[2021-06-20] MEDS ORDERED: VERAPAMIL 2.5 MG/ML 2 ML AMP ONE (13:47)
[2021-06-20] MEDS ORDERED: LIDOCAINE 1% INJ 10MG/ML (20 ML MDV) ONE (13:47)
[2021-06-20] MEDS ORDERED: fentaNYL (PF) 50 MCG/ML 2 ML AMP ONE (13:47)
[2021-06-20] MEDS ORDERED: fentaNYL (PF) 50 MCG/ML 2 ML AMP IVP ONE (13:51)
[2021-06-20] MEDS: LIDOCAINE 1% INJ 10MG/ML (20 ML MDV) SQ ONE ×2 (13:55→13:58)
[2021-06-20] MEDS: MIDAZOLAM 2 MG/2 ML VIAL IVP ONE ×2 (13:57→14:05)
[2021-06-20] MEDS: VERAPAMIL SYRINGE (5 MG/10 ML) INTRAARTER ONE ×2 (13:59→14:08)
[2021-06-20] MEDS ORDERED: HEPARIN SODIUM 1,000 UN/ML (10ML VL) ONE (14:03)
[2021-06-20] MEDS ORDERED: HEPARIN SODIUM 1,000 UN/ML (10ML VL) IVP ONE (14:04)
[2021-06-20] MEDS ORDERED: IOPAMIDOL-370 125ML BTL INJ ONE (14:12)
[2021-06-20] MEDS ORDERED: RX INFO: IV CONTRAST WAS GIVEN 1 EACH MISC MISCELLANE PRN (14:21)
[2021-06-20] MEDS ORDERED: SODIUM CHLORIDE 0.9% 1,000 ML IV SCH (14:30)
--- NOTE | 2021-06-20 16:54 | ECHOF ---
Referral Reason:LVF MEASUREMENTS -------- HEIGHT: 167.6 cm WEIGHT: 129.7 kg BP: RVIDd: 3.4 cm (< 3.3) IVSd: 1.2 cm (0.6 - 1.1) LVIDd: 3.8 cm (3.9 - 5.3) LVPWd: 1.2 cm (0.6 - 1.1) IVSs: 2.0 cm LVIDs: 1.5 cm LVPWs: 2.1 cm Ao Diam: 2.9 cm (2.0 - 3.7) AV Cusp: 1.7 cm (1.5 - 2.6) LA Diam: 2.7 cm (2.7 - 3.8) MV EXCURSION: 16.659 mm (> 18.000) MV EF SLOPE: 89 mm/s (70 - 150) EPSS: 0.4 cm MV E Ata: 0.83 m/s MV DecT: 268 ms MV A Ata: 0.65 m/s MV E/A Ratio: 1.28 RAP: 5.00 mmHg RVSP: 17.01 mmHg FINDINGS -------- This was a technically good study. The left ventricular size is normal. There is mild concentric left ventricular hypertrophy. Overa ll left ventricular systolic function is normal with, an EF between 55 - 60 %. The right ventricle is mildly enlarged. The left atrial size is normal. The right atrial size is normal. The aortic valve is trileaflet and appears structurally normal. The mitral valve is normal. Mild mitral regurgitation is present. The tricuspid valve appears structurally normal. Mild tricuspid regurgitation present. Right vent ricular systolic pressure is normal at < 35 mmHg. There is no pulmonic regurgitation present. The aortic root size is normal. Normal inferior vena cava with normal inspiratory collapse consistent with estimated right atrial pre ssure of 5 mmHg. There is no pericardial effusion. CONCLUSIONS -------- 1. The left ventricular size is normal. 2. There is mild concentric left ventricular hypertrophy. 3. Overall left ventricular systolic function is normal with, an EF between 55 - 60 %. 4. The right ventricle is mildly enlarged. 5. Mild mitral regurgitation is present. 6. Mild tricuspid regurgitation present. 7. There is no pericardial effusion. ARTS EDUCATION TEACHER: Daniela Leahy [facility]
--- NOTE | 2021-06-20 20:32 | CC ---
CARDIAC CATHETERIZATION REPORT Mrs. Lara is a 40-year-old female with a history of chronic tobacco use as well as chronic marijuana use. She presented to the hospital with symptoms of chest discomfort and mild troponin elevation. She was evaluated by Dr. Hoang and recommendation was made regarding cardiac catheterization. The procedure as well as its risks and complications were discussed with the patient, who was in full understanding and agreement. PROCEDURE DESCRIPTION: Patient was brought to the analytical laboratory technician in a fasting, semi-sedated state after receiving fentanyl and Benadryl and achieving a moderate conscious sedated state. Using xylocaine anesthesia and Seldinger technique, a 6-Malagasy sheath was introduced in the right radial artery. Selective right and left coronary angiography was performed using 5-Malagasy 3.5 bend, right and left Ginger catheter. Multiple views were taken of the arteries, including hemiaxial views. Following that, a 5-Malagasy tight pigtail catheter was introduced into the left ventricle and a 30-degree OLSON view of the left ventricle was obtained. Following that, catheter and sheath were removed. Hemostasis was obtained with deployment of a TR band. There was no immediate complication. Patient was returned to her room in stable condition. Of note, the patient received 5000 units of intravenous heparin as well as intra-arterial verapamil. FINDINGS: LEFT MAIN: This is a short-sized vessel, bifurcating into left circumflex and left anterior descending artery. Left main coronary artery has no evidence of high-grade stenosis. LEFT ANTERIOR DESCENDING ARTERY: This is a large-sized vessel reaching to the apex, giving rise to 2 diagonal branches. The left anterior descending artery as well as its branches have no evidence of obstructive coronary artery disease. LEFT CIRCUMFLEX: This is a nondominant large-sized vessel giving rise to 2 obtuse marginal branches. The second one is large in caliber. The left circumflex as well as its branches have no evidence of obstructive coronary artery disease. RIGHT CORONARY ARTERY: This is a large dominant vessel bifurcating distally into PDA and posterolateral segment and branches. The right coronary artery as well as its branches have no evidence of obstructive coronary artery disease. LEFT VENTRICULOGRAM: Left ventriculogram was performed in 30-degree OLSON view and revealed normal left ventricular size and systolic function. Ejection fraction is 60%. There was no significant mitral regurgitation. HEMODYNAMICS: There was no gradient across the aortic valve. The left ventricular end- diastolic pressure was 16-20 mmHg. CONCLUSION: 1. Normal coronary arteries. 2. Normal left ventricular size and systolic function. RECOMMENDATIONS: In view of findings and anatomy, I have recommended continued medical therapy. Patient may have had vasospastic disease related to her chronic tobacco use. At this time we will continue medical regimen and, depending on her progress, further recommendations will be made. Those findings and recommendations were discussed with the patient and her family, and they are in full understanding and agreement. Duration of sedation was 21 minutes. MMGAEL / TEODORON: [id number] /
[2021-06-20] MEDS ORDERED: hydrOXYzine HCL 10 MG TAB PO SCH (21:00)
[2021-06-20 23:24] LABS: Chol/HDL Ratio 4.07; LDL Cholesterol,Calculated 120.2 mg/dL (0.0-131.0); VLDL Calculation 17.8 mg/dL (5.00-40.00)
[2021-06-21 06:54] VITALS: RESP 16
[2021-06-21] MEDS ORDERED: NICOTINE 14MG/24HR PATCH TRANSDERM SCH (09:00)
[2021-06-21] MEDS ORDERED: ASPIRIN 81 MG PO SCH (09:00)
[2021-06-21 09:06] VITALS: TEMP 98.1
[2021-06-21] MEDS: FERROUS SULFATE 325 MG TAB PO SCH (09:08)
[2021-06-21 09:40] LABS: Basophils % (A) 1 %; Eosinophils # (A) 0.1 k/uL (0-0.7); Eosinophils % (A) 1 %; HCT 40.8 % (34.0-46.0); HGB 13.6 gm/dL (11.4-16.0); Lymphocytes # (A) 1.4 k/uL (1.0-4.8); Lymphocytes % (A) 22 %; MCH 32.1 pg (25.0-35.0); MCHC 33.4 g/dL (31.0-37.0); MCV 96.1 fL (80.0-100.0); Mean Platelet Volume 9.6; Monocytes # (A) 0.3 k/uL (0-1.0); Monocytes % (A) 5 %; Neutrophils # (A) 4.3 k/uL (1.3-7.7); Neutrophils % (A) 69 %; Platelet Count 235 k/uL (150-450); RBC 4.25 m/uL (3.80-5.40); RDW 13.2 % (11.5-15.5); WBC 6.2 k/uL (3.8-10.6)
[2021-06-21 10:03] LABS: ALT 21 U/L (4-34); AST 20 U/L (14-36); African American GFR (CKD) >90 (>60 ml/min/1.73 sqM); Albumin 3.4 g/dL (3.5-5.0); Alkaline Phosphatase 60 U/L (38-126); Anion Gap 5 mmol/L; Blood Urea Nitrogen 9 mg/dL (7-17); Calcium 8.7 mg/dL (8.4-10.2); Carbon Dioxide 27 mmol/L (22-30); Chloride 107 mmol/L (98-107); Glucose 142 mg/dL (74-99); Non-African American GFR(CKD) >90 (>60 ml/min/1.73 sqM); Sodium 139 mmol/L (137-145); Total Bilirubin 0.9 mg/dL (0.2-1.3)
[2021-06-21 12:04] VITALS: BP 109/63
--- NOTE | 2021-06-21 12:53 | P.DS ---
Providers Date of admission: 06/19/21 22:03 Expected date of discharge: 06/21/21 Attending physician: Noris Finley Consults: 06/19/21 22:05 Consult Physician Urgent Consulting Provider: Eliseo Lisa Consult Reason/Comments: nstemi Do you want consulting provider notified?: Already Contacted Primary care physician: Dolly Ventura Hospital Course: Diagnosis on discharge: 1. Non-ST elevated myocardial infarction 2. History of GERD 3. Nicotine dependence. Patient educated greater than 5 minutes regarding smoking cessation. Nicotine patch will be ordered 4. Marijuana use 5. Generalized anxiety Hospital course: Is is a 40-year-old female patient of Dr. Ventura who presented with episode of chest pain. Patient reports that she was sitting outside when she had a sudden episode of chest pain. Patient also reports she had mild shortness of breath. At that time patient took Tums and the pain resolved patient reports the pain lasted only approximately 10 minutes but she decided to come the ER for further evaluation. Patient has a past medical history of GERD thyroid disorder kidney stones endometriosis and current every day smoker. Chest x-ray completed showing no acute pulmonary process. Chest CTA completed showing no pulmonary embolus no acute process in the chest. Troponins elevated at 0.226, 0.207 and 0.123. Patient was started on heparin drip and cardiology services were consulted. At this time patient is resting comfortably in bed. Patient denies any chest pain or shortness of breath. Patient denies nausea vomiting or diarrhea. Patient denies any urinary burning or frequency On 06/21/2021 patient was seen and examined on the telemetry floor, she underwent cardiac catheterization yesterday which revealed normal coronary arteries without any evidence of coronary artery disease she was reevaluated today by cardiology and was cleared for discharge. Patient will be discharged home today, she was counseled again in regard to smoking cessation, patient was maintained on nicotine patch during this admission and was given a prescription for the same at the time of discharge, she will follow-up with Dr. Ventura, her primary care physician within 7 days, she will also follow-up with cardiology in 1-2 weeks Patient Condition at Discharge: Serious Plan - Discharge Summary New Discharge Prescriptions: New Nicotine 14Mg/24Hr Patch [Habitrol] 1 patch TRANSDERM DAILY patch Continue Iron Chew (Unknown Strength) 1 tab PO DAILY Omeprazole 20 mg PO DAILY PRN PRN Reason: ACID REFLUX hydrOXYzine HCL [Atarax] 10 mg PO HS Discharge Medication List Iron Chew (Unknown Strength) 1 tab PO DAILY 06/19/21 [History] Omeprazole 20 mg PO DAILY PRN 06/19/21 [History] hydrOXYzine HCL [Atarax] 10 mg PO HS 06/19/21 [History] Nicotine 14Mg/24Hr Patch [Habitrol] 1 patch TRANSDERM DAILY patch 06/21/21 [Rx] Follow up Appointment(s)/Referral(s): Dolly Ventura MD [Primary Care Provider] - 1-2 days (please call office when open to make follow up appointment) Leah Hoang MD [STAFF PHYSICIAN] - 1 Week (please call office when open to make follow up appointment) Patient Instructions/Handouts: *Surgery [facility] - After Heart Catheterization - Computer Artist Instructions
--- NOTE | 2021-06-21 14:18 | P.PN ---
Subjective Progress Note Date: 06/21/21 History of present illness: This is a 40-year-old female with past medical history of gastroesophageal ref lux disease and anxiety. Patient states that she developed chest pain in the middle part of her chest going up her esophagus felt like a gas bubble but she also developed sweating and a little shortness of breath. She states she was not sure if it was related to the pain or if she was panicking. She does give history of panic attacks and feels anxious. She has had left shoulder pain on and off for some time and did experience pain in her left shoulder and this has continued. She took some Tums at home and pain was relieved by the time she came into the hospital. She states she now feels tired and has left shoulder pain. She denies any history of cardiac problems. Father had history of hypertension diabetes. Mother has history of pulmonary embolism and SD. Patient is a smoker one pack per day for 19 years and uses marijuana on a daily basis. No illicit drug use or alcohol use. She denies having any chest pain with any recent activity. Patient was found to be afebrile, heart rate in the 70s, blood pressure 145/84, pulse ox 98% on room air. EKG sinus rhythm with no acute ST changes. Chest x-ray reveals no acute cardio pulmonary process. CT of the chest reveals no pulmonary embolus. No acute process in the chest. Troponins 0.226, 0.207, 0.123. CBC unremarkable. Creatinine 0.53, CMP unremarkable. Coronavirus not detected. Patient was started on heparin drip. 06/21: Ginny had a heart catheterization yesterday that came back normal. Lipid panel was normal. Right wrist shows no hematoma, good pulse. ekg monitor tech has been a sinus rhythm. Physical examination: Gen: This is a a 40-year-old morbidly obese female. She is resting in bed appears to be comfortable and in no acute distress. VS: Afebrile, heart rate mostly running 60s to 80s up to 114. ekg monitor tech has been a sinus rhythm. Blood pressure 131/64, pulse ox 97%. HEENT: Head is atraumatic, normocephalic. Pupils equal, round. Sclerae is anicteric. NECK: Supple. No JVD. No lymphadenopathy. No thyromegaly. LUNGS: Clear to auscultation. No wheezes or rhonchi. No intercostal retractions. HEART: Regular rate and rhythm. No murmur. No chest wall tenderness. ABDOMEN: Soft. Bowel sounds are present. No masses. No tenderness. No epigastric tenderness. EXTREMITIES: No pedal edema. No calf tenderness. Dorsalis pedis +2 bilaterally. NEUROLOGICAL: Patient is awake, alert and oriented x3. Cranial nerves 2 through 12 are grossly intact. Assessment: Possible non-ST elevated myocardial infarction as been ruled out by normal heart catheterization Gastroesophageal reflux disease Active tobacco use and dependence Daily marijuana use Plan: Patient is cleared for discharge from cardiology Follow-up with Dr. Hoang in the office. Nurse practitioner note has been reviewed, I agree with documented findings and plan of care. Patient was seen and examined. Objective - Vital Signs Vital signs: Vital Signs Temp 98.1 F 06/21/21 08:00 Pulse 60 06/20/21 12:00 Resp 16 06/21/21 08:00 BP 106/64 06/21/21 08:00 Pulse Ox 98 06/21/21 08:00 Intake & Output 06/20/21 06/21/21 06/21/21 18:59 06:59 18:59 Intake Total 319.496 240 Output Total 300 Balance 319.496 -300 240 Weight 129.7 kg Intake: IV 225 Intake, IV Titration 94.496 Amount Heparin Sod,Pork in 0.45% 94.496 NaCl 25,000 unit In 0.45 % NaCl 1 250ml.bag @ 8. 105 UNITS/KG/HR 10 mls/hr IV .Q24H [facility] Rx#: [id number] Oral 240 Output: Urine 300 Other: Voiding Method Toilet Toilet Toilet # Voids 2 1 - Labs CBC & Chem 7: 06/21/21 09:07 06/21/21 09:07 Labs: Abnormal Lab Results - Last 24 Hours (Table) 06/20/21 06/20/21 06/21/21 Range/Units 11:15 11:15 09:07 APTT 38.7 H (22.0-30.0) sec Chloride 111 H (98-107) mmol/L Carbon Dioxide 21 L (22-30) mmol/L Creatinine 0.49 L (0.52-1.04) mg/dL Glucose 108 H 142 H (74-99) mg/dL Total Protein 6.0 L (6.3-8.2) g/dL Albumin 3.4 L (3.5-5.0) g/dL
== END 2021-06-21 16:22 | disposition home or self-care (01) ==
LOC: EC 16:31 → INTOOBSV 22:03 → 3SCARD 22:03 → UNDODISIN 06-21 16:22
PROVIDERS: ADMIT Internal Medicine; ATTEND Internal Medicine
DX: I21.4 Non-ST elevation (NSTEMI) myocardial infarction (principal); K21.9 Gastro-esophageal reflux disease without esophagitis; F41.1 Generalized anxiety disorder; F41.0 Panic disorder [episodic paroxysmal anxiety]; E07.9 Disorder of thyroid, unspecified; F17.210 Nicotine dependence, cigarettes, uncomplicated; E66.01 Morbid (severe) obesity due to excess calories; Z68.42 Body mass index [BMI] 45.0-49.9, adult; Z20.822 Contact with and (suspected) exposure to COVID-19; Z87.442 Personal history of urinary calculi; Z90.710 Acquired absence of both cervix and uterus; Z79.899 Other long term (current) drug therapy; Z88.0 Allergy status to penicillin; Z71.6 Tobacco abuse counseling; Z83.3 Family history of diabetes mellitus; Z82.49 Family history of ischemic heart disease and other diseases of the circulatory system; Z87.42 Personal history of other diseases of the female genital tract
CPT/HCPCS: 96366; 96376; 96365; 99291; 36415; 93005; 93306; 93458; 80061; 80053 ×3; 80048; 83735; 84484 ×2; 85025 ×3; 85610 ×2; 85730 ×2; 87635; 71046; 71275; G0378 ×3; C1894; C1769; S4990; J2250; J2001; J3010; J1644 ×3; Q9967 ×2; 99285

== ENCOUNTER 2023-08-12 17:06 | Emergency (ER) | payer OTHER ==
[2023-08-12 17:43] VITALS: TEMP 97.9
[2023-08-12] MEDS ORDERED: SODIUM CHLORIDE 0.9% 1,000 ML IV STA (19:16)
[2023-08-12] MEDS ORDERED: diphenhydrAMINE 50 MG/ML 1 ML VIAL IVP STA (19:16)
[2023-08-12] MEDS ORDERED: DEXAMETHASONE SOD PHOSPHATE 10 MG/ML 1 ML VIAL IVP STA (19:16)
[2023-08-12] MEDS ORDERED: METOCLOPRAMIDE 5 MG/ML 2 ML VIAL IVP STA (19:16)
[2023-08-12] MEDS ORDERED: KETOROLAC 15 MG/ML 1 ML VIAL IVP STA (19:16)
--- NOTE | 2023-08-12 19:19 | ED ---
Headache HPI - General Source: patient, RN notes reviewed Mode of arrival: ambulatory Limitations: no limitations <Parrish Lyon - Last Filed: 08/14/23 02:56> <Sheree Bueno - Last Filed: 08/14/23 11:19> - General Chief Complaint: Headache Stated Complaint: migraine Time Seen by Provider: 08/12/23 19:17 - History of Present Illness Initial Comments: 42-year-old female presenting with chief complaint of migraine. Patient has history of migraines. States that her tach is not working. Patient also states that she has a red and painful bump to the finger along the fingernail. (Parrish Lyon) 42-year-old female presents emergency department chief complaint of migraine headache. Patient states that she does have history of migraines and is on medication which she has been taking. This is not working this time. She states that her migraine has been going on for around one week. She states that it is similar in character to her normal migraines. She reports the level of pa in and the location is comparable to her typical migraines. She does admit to some mild dizziness which feels like a spinning sensation. She states that this is typical of her migraine headaches. She states that she felt she was coming down with a bug recently as her child was sick. (Sheree Bueno) - Related Data Home Medications Medication Instructions Recorded Confirmed Iron Chew (Unknown Strength) 1 tab PO DAILY 06/19/21 06/19/21 Omeprazole 20 mg PO DAILY PRN 06/19/21 06/19/21 hydrOXYzine HCL [Atarax] 10 mg PO HS 06/19/21 06/19/21 Previous Rx's Medication Instructions Recorded Nicotine 14Mg/24Hr Patch [Habitrol] 1 patch TRANSDERM DAILY patch 06/21/21 Cephalexin [Keflex] 500 mg PO Q6HR #28 cap 08/13/23 Allergies Allergy/AdvReac Type Severity Reaction Status Date / Time amoxicillin Allergy Rash/Hives Verified 08/12/23 17:42 Penicillins Allergy Rash/Hives Verified 08/12/23 17:42 Review of Systems ROS Other: All systems not noted in ROS Statement are negative. <Parrish Lyon - Last Filed: 08/14/23 02:56> ROS Other: All systems not noted in ROS Statement are negative. <Sheree Bueno - Last Filed: 08/14/23 11:19> ROS Statement: Those systems with pertinent positive or pertinent negative responses have been documented in the HPI. Past Medical History Past Medical History: Diabetes Mellitus, GERD/Reflux, Myocardial Infarction (ND), Thyroid Disorder Additional Past Medical History / Comment(s): low iron interstital cysitis , kidney stones, endometriosis, migraine History of Any Multi-Drug Resistant Organisms: None Reported Past Surgical History: Hysterectomy, Uterine Ablation Additional Past Surgical History / Comment(s): D&C 2007, wisdom teeth, laparoscopic lap for endometriosis. Past Anesthesia/Blood Transfusion Reactions: No Reported Reaction Past Psychological History: Anxiety Smoking Status: Current every day smoker Past Alcohol Use History: None Reported Past Drug Use History: Marijuana <Parrish Lyon - Last Filed: 08/14/23 02:56> General Exam Limitations: no limitations <Prarish Lyon - Last Filed: 08/14/23 02:56> Limitations: no limitations General appearance: alert, in no apparent distress Head exam: Present: atraumatic, normocephalic, normal inspection Eye exam: Present: normal appearance, PERRL, EOMI. Absent: scleral icterus, conjunctival injection, periorbital swelling ENT exam: Present: normal exam, mucous membranes moist Neck exam: Present: normal inspection. Absent: tenderness, meningismus, lymphadenopathy Respiratory exam: Present: normal lung sounds bilaterally. Absent: respiratory distress, wheezes, rales, rhonchi, stridor Cardiovascular Exam: Present: regular rate, normal rhythm, normal heart sounds. Absent: systolic murmur, diastolic murmur, rubs, gallop, clicks GI/Abdominal exam: Present: soft, normal bowel sounds. Absent: distended, tenderness, guarding, rebound, rigid Extremities exam: Present: normal inspection, full ROM, normal capillary refill. Absent: tenderness, pedal edema, joint swelling, calf tenderness Back exam: Present: normal inspection Neurological exam: Present: alert, oriented X3, CN II-XII intact, normal gait. Absent: motor sensory deficit Psychiatric exam: Present: normal affect, normal mood Skin exam: Present: warm, dry, intact, normal color. Absent: rash <Sheree Bueno - Last Filed: 08/14/23 11:19> - General Exam Comments Initial Comments: Visual Physical Exam Vital signs reviewed General: Well-appearing, nontoxic, no acute distress. Head: Normocephalic, atraumatic Eyes: PERRLA, EOMI ENT: Airway patent Chest: Nonlabored breathing Skin: No visual rash, normal skin tone Neuro: Alert and oriented 3 Musculoskeletal: No gross abnormalities (Parrish Lyon) Course Vital Signs 08/12/23 08/12/23 08/13/23 17:39 22:23 00:33 Temperature 97.9 F Pulse Rate 122 H 72 59 L Respiratory 20 18 16 Rate Blood Pressure 140/82 134/84 130/85 O2 Sat by Pulse 99 98 96 Oximetry Medical Decision Making - Lab Data Result diagrams: 08/12/23 21:55 08/12/23 21:55 <Parrish Lyon - Last Filed: 08/14/23 02:56> - Lab Data Result diagrams: 08/12/23 21:55 08/12/23 21:55 <Sheree Bueno - Last Filed: 08/14/23 11:19> - Medical Decision Making I performed the quick note portion of this visit, signed Parrish Lyon PA-C (Parrish Lyon) Was pt. sent in by a medical professional or institution ([facility] Williamson, IMAGE ASSEMBLER, urgent care, hospital, or senior care...) When possible be specific @ -No Did you speak to anyone other than the patient for history (EMS, parent, family, police, friend...)? What history was obtained from this source @ -No Did you review nursing and triage notes (agree or disagree)? Why? @ -I reviewed and agree with nursing and triage notes Were old charts reviewed (outside hosp., previous admission, EMS record, old EKG, old radiological studies, urgent care reports/EKG's, senior care records)? Report findings @ -No old charts were reviewed Differential Diagnosis (chest pain, altered mental status, abdominal pain women, abdominal pain men, vaginal bleeding, weakness, fever, dyspnea, syncope, headache, dizziness, GI bleed, back pain, seizure, CVA, palpatations, mental health, musculoskeletal)? @ -Differential Headache: Migraine, tension, cluster, carbon monoxide, central venous thrombosis, pension karma temporal arteritis, acute closure glaucoma, intercranial hemorrhage, mastoiditis, sinusitis, head injury, this is not meant to be an all-inclusive list. EKG interpreted by me (3pts min.). @ -EKG [id number] shows sinus rhythm rate 65, TN 157, QRS 94, QTQTc [id number] X-rays interpreted by me (1pt min.). @ -None done CT interpreted by me (1pt min.). @ -None done U/S interpreted by me (1pt. min.). @ -None done What testing was considered but not performed or refused? (CT, X-rays, U/S, labs)? Why? @ -CT brain considered, patient is having her typical migraine symptoms What meds were considered but not given or refused? Why? @ -None Did you discuss the management of the patient with other professionals (professionals i.e. , PA, IMAGE ASSEMBLER, lab, RT, psych nurse, professor of social work, armor reconnaissance vehicle driver, teacher, security officers and guards, case operator)? Give summary @ -No Was smoking cessation discussed for >3mins.? @ -No Was critical care preformed (if so, how long)? @ -No Were there social determinants of health that impacted care today? How? (Homelessness, low income, unemployed, alcoholism, drug addiction, transportation, low edu. Level, literacy, decrease access to med. care, shelter, rehab)? @ -No Was there de-escalation of care discussed even if they declined (Discuss DNR or withdrawal of care, Hospice)? DNR status @ -No What co-morbidities impacted this encounter? (DM, HTN, Smoking, COPD, CAD, Cancer, CVA, ARF, Chemo, Hep., AIDS, mental health diagnosis, sleep apnea, morbid obesity)? @ -None Was patient admitted / discharged? Hospital course, mention meds given and route, prescriptions, significant lab abnormalities, going to OR and other pertinent info. @ -Discharged. Patient presented to the emergency department chief complaint of migraine headache. Laboratory studies were obtained which are essentially unremarkable. Covid, influenza, RSV negative. Patient was given a migraine cocktail including Toradol, Benadryl, Decadron, fluids. She does report an improvement in her symptoms following this. Patient is comfortable with discharge plan. She is going to follow up with her primary care provider. Strict return precautions discussed. Patient stable at discharge. Case discussed with Dr. Souza. Undiagnosed new problem with uncertain prognosis? @ -No Drug Therapy requiring intensive monitoring for toxicity (Heparin, Nitro, Insulin, Cardizem)? @ -No Were any procedures done? @ -No Diagnosis/symptom? @ -Migraine Acute, or Chronic, or Acute on Chronic? @ -Acute Uncomplicated (without systemic symptoms) or Complicated (systemic symptoms)? @ -Uncomplicated Side effects of treatment? @ -No Exacerbation, Progression, or Severe Exacerbation? @ -No Poses a threat to life or bodily function? How? (Chest pain, USA, ND, pneumonia, PE, COPD, DKA, ARF, appy, cholecystitis, CVA, Diverticulitis, Homicidal, Suicidal, threat to staff... and all critical care pts) @ -No (Sheree Bueno) - Lab Data Lab Results 08/12/23 08/12/23 08/12/23 Range/Units 21:55 21:55 21:55 WBC 9.5 (3.8-10.6) k/uL RBC 4.45 (3.80-5.40) m/uL Hgb 14.0 (11.4-16.0) gm/dL Hct 41.9 (34.0-46.0) % MCV 94.2 (80.0-100.0) fL MCH 31.5 (25.0-35.0) pg MCHC 33.4 (31.0-37.0) g/dL RDW 13.0 (11.5-15.5) % Plt Count 217 (150-450) k/uL MPV 9.4 Neutrophils % 66 % Lymphocytes % 26 % Monocytes % 5 % Eosinophils % 1 % Basophils % 0 % Neutrophils # 6.3 (1.3-7.7) k/uL Lymphocytes # 2.4 (1.0-4.8) k/uL Monocytes # 0.5 (0-1.0) k/uL Eosinophils # 0.1 (0-0.7) k/uL Basophils # 0.0 (0-0.2) k/uL PT (10.0-12.5) sec INR (<1.2) APTT (22.0-30.0) sec Sodium 136 L (137-145) mmol/L Potassium 4.0 (3.5-5.1) mmol/L Chloride 105 (98-107) mmol/L Carbon Dioxide 22 (22-30) mmol/L Anion Gap 9 mmol/L BUN 10 (7-17) mg/dL Creatinine 0.53 (0.52-1.04) mg/dL Est GFR (CKD-EPI)AfAm >90 (>60 ml/min/1.73 sqM) Est GFR (CKD-EPI)NonAf >90 (>60 ml/min/1.73 sqM) Glucose 96 (74-99) mg/dL Calcium 8.8 (8.4-10.2) mg/dL Total Bilirubin 1.0 (0.2-1.3) mg/dL AST 32 (14-36) U/L ALT 52 H (4-34) U/L Alkaline Phosphatase 72 (38-126) U/L Total Protein 6.7 (6.3-8.2) g/dL Albumin 3.9 (3.5-5.0) g/dL Influenza Type A (PCR) Not Detected (Not Detectd) Influenza Type B (PCR) Not Detected (Not Detectd) RSV (PCR) Not Detected (Not Detectd) SARS-CoV-2 (PCR) Not Detected (Not Detectd) 08/12/23 Range/Units 21:55 WBC (3.8-10.6) k/uL RBC (3.80-5.40) m/uL Hgb (11.4-16.0) gm/dL Hct (34.0-46.0) % MCV (80.0-100.0) fL MCH (25.0-35.0) pg MCHC (31.0-37.0) g/dL RDW (11.5-15.5) % Plt Count (150-450) k/uL MPV Neutrophils % % Lymphocytes % % Monocytes % % Eosinophils % % Basophils % % Neutrophils # (1.3-7.7) k/uL Lymphocytes # (1.0-4.8) k/uL Monocytes # (0-1.0) k/uL Eosinophils # (0-0.7) k/uL Basophils # (0-0.2) k/uL PT 10.3 (10.0-12.5) sec INR 0.9 (<1.2) APTT 25.1 (22.0-30.0) sec Sodium (137-145) mmol/L Potassium (3.5-5.1) mmol/L Chloride (98-107) mmol/L Carbon Dioxide (22-30) mmol/L Anion Gap mmol/L BUN (7-17) mg/dL Creatinine (0.52-1.04) mg/dL Est GFR (CKD-EPI)AfAm (>60 ml/min/1.73 sqM) Est GFR (CKD-EPI)NonAf (>60 ml/min/1.73 sqM) Glucose (74-99) mg/dL Calcium (8.4-10.2) mg/dL Total Bilirubin (0.2-1.3) mg/dL AST (14-36) U/L ALT (4-34) U/L Alkaline Phosphatase (38-126) U/L Total Protein (6.3-8.2) g/dL Albumin (3.5-5.0) g/dL Influenza Type A (PCR) (Not Detectd) Influenza Type B (PCR) (Not Detectd) RSV (PCR) (Not Detectd) SARS-CoV-2 (PCR) (Not Detectd) Disposition <Parrish Lyon - Last Filed: 08/14/23 02:56> Is patient prescribed a controlled substance at d/c from ED?: No <Sheree Bueno - Last Filed: 08/14/23 11:19> Clinical Impression: Migraine, Paronychia Disposition: HOME SELF-CARE Condition: Stable Instructions (If sedation given, give patient instructions): Migraine Headache (ED) Additional Instructions: Please follow up with your primary care provider. Return to the emergency department for new or worsening symptoms. Prescriptions: Cephalexin [Keflex] 500 mg PO Q6HR #28 cap Referrals: Dolly Ventura MD [Primary Care Provider] - 1-2 days Tabitha Perkins MD [STAFF PHYSICIAN] - 1-2 days
[2023-08-12 22:15] LABS: Basophils % (A) 0 %; Eosinophils # (A) 0.1 k/uL (0-0.7); Eosinophils % (A) 1 %; HCT 41.9 % (34.0-46.0); Lymphocytes # (A) 2.4 k/uL (1.0-4.8); Lymphocytes % (A) 26 %; MCH 31.5 pg (25.0-35.0); MCHC 33.4 g/dL (31.0-37.0); MCV 94.2 fL (80.0-100.0); Mean Platelet Volume 9.4; Monocytes # (A) 0.5 k/uL (0-1.0); Monocytes % (A) 5 %; Neutrophils # (A) 6.3 k/uL (1.3-7.7); Neutrophils % (A) 66 %; Platelet Count 217 k/uL (150-450); RBC 4.45 m/uL (3.80-5.40); WBC 9.5 k/uL (3.8-10.6)
[2023-08-12 22:25] LABS: INR 0.9 (<1.2); Partial Thromboplastin Time 25.1 sec (22.0-30.0); Prothrombin Time 10.3 sec (10.0-12.5)
[2023-08-12 22:32] LABS: ALT 52 U/L (4-34); AST 32 U/L (14-36); African American GFR (CKD) >90 (>60 ml/min/1.73 sqM); Albumin 3.9 g/dL (3.5-5.0); Alkaline Phosphatase 72 U/L (38-126); Anion Gap 9 mmol/L; Blood Urea Nitrogen 10 mg/dL (7-17); Calcium 8.8 mg/dL (8.4-10.2); Carbon Dioxide 22 mmol/L (22-30); Chloride 105 mmol/L (98-107); Glucose 96 mg/dL (74-99); Non-African American GFR(CKD) >90 (>60 ml/min/1.73 sqM); Sodium 136 mmol/L (137-145); Total Protein 6.7 g/dL (6.3-8.2)
[2023-08-13 00:47] VITALS: BP 130/85; PULSE 59; RESP 16
== END 2023-08-13 00:34 | disposition home or self-care (01) ==
LOC: EC 17:06
DX: G43.909 Migraine, unspecified, not intractable, without status migrainosus (principal); L03.039 Cellulitis of unspecified toe; K21.9 Gastro-esophageal reflux disease without esophagitis; E11.9 Type 2 diabetes mellitus without complications; I25.2 Old myocardial infarction; F41.9 Anxiety disorder, unspecified; F17.200 Nicotine dependence, unspecified, uncomplicated; F12.90 Cannabis use, unspecified, uncomplicated; Z88.0 Allergy status to penicillin; Z79.899 Other long term (current) drug therapy; Z20.822 Contact with and (suspected) exposure to COVID-19
CPT/HCPCS: 36415; 93005; 80053; 85025; 85610; 85730; 87636; 99284; 96374; 96375 ×3; 96361 ×2; J1200; J1100; J2765; J1885

== ENCOUNTER → 2023-10-07 | Outpatient (CLI) | payer OTHER ==
--- NOTE | 2023-10-10 17:11 | MM ---
Reason for Exam: Screening (asymptomatic). Last mammogram was performed 7 year(s) and 8 month(s) ago. Patient History: Menarche at age 13. First Full-Term at age 25. Hysterectomy at age 39. Patient has history of breast feeding. Hormonal Contraceptives for 2 years from age 16 until age 18. Risk Values: Carmel 5 year model risk: 0.5%. NCI Lifetime model risk: 9.9%. Prior Study Comparison: 02/02/2016 Bilateral Diagnostic Mammogram, [facility]. Tissue Density: There are scattered fibroglandular densities. Findings: Analyzed By CAD. There is no suspicious group of microcalcifications or new suspicious mass in either breast. Overall Assessment: Negative, BI-RAD 1 Management: Screening Mammogram of both breasts in 1 year. . Patient should continue monthly self-breast exams. A clinical breast exam by your physician is recommended on an annual basis. This exam should not preclude additional follow-up of suspicious palpable abnormalities. Note on Carmel scores and lifetime risk: 1. A Carmel score greater than 3% is considered moderate risk. If this is the case, consider specialist referral to assess eligibility for a risk reducing agent. 2. If overall lifetime risk for the development of breast cancer is 20% or higher, the patient may qualify for future screening with alternating mammogram and breast MRI. Electronically signed and approved by: Jhonathan Loja M.D. Radiologist
== END | disposition home or self-care (01) ==
LOC: RADMAMWWP 12:47
PROVIDERS: ATTEND Family Medicine
DX: Z12.31 Encounter for screening mammogram for malignant neoplasm of breast (principal)
CPT/HCPCS: 77063; 77067

== ENCOUNTER → 2024-06-19 | Outpatient (CLI) | payer OTHER ==
[2024-06-19 20:26] LABS: Basophils # (A) 0.07 X 10*3/uL (0.00-0.10); Basophils % (A) 0.8 %; Eosinophils # (A) 0.19 X 10*3/uL (0.04-0.35); Eosinophils % (A) 2.2 %; HCT 42.7 % (37.2-46.3); HGB 14.2 g/dL (12.0-15.0); Lymphocytes # (A) 1.91 X 10*3/uL (0.90-5.00); MCH 31.8 pg (27.0-32.0); MCHC 33.3 g/dL (32.0-37.0); MCV 95.5 FL (80.0-97.0); Mean Platelet Volume 12.5 FL (9.5-12.2); Monocytes # (A) 0.61 X 10*3/uL (0.20-1.00); NRBC Per 100 WBC 0 X 10*3/uL (0.00-0.01); Neutrophils # (A) 5.85 X 10*3/uL (1.80-7.70); Neutrophils % (A) 67.3 %; Platelet Count 276 X 10*3/uL (140-440); RBC 4.47 X 10*6/uL (4.10-5.20); RDW 13.6 % (11.5-14.5); WBC 8.69 X 10*3/uL (4.50-10.00)
[2024-06-19 22:13] LABS: Blood Urea Nitrogen 6.9 mg/dL (9.0-27.0); Calcium 9.1 mg/dL (8.7-10.3); Carbon Dioxide 22.5 mmol/L (21.6-31.8); Chloride 103 mmol/L (96-109); Ferritin 85.5 ng/mL (10.0-291.0); Glucose 113 mg/dL (70-110); Potassium 4.2 mmol/L (3.5-5.5); Sodium 137 mmol/L (135-145); T4, Free (Free Thyroxine) 0.95 ng/dL (0.80-1.80)
[2024-06-19 22:32] LABS: Follicle Stimulating Hormone 4.5 mIU/mL; Luteinizing Hormone 12.9 mIU/mL
== END | disposition home or self-care (01) ==
LOC: LABWHC1 13:39
PROVIDERS: ATTEND Registered Nurse
DX: N95.1 Menopausal and female climacteric states
CPT/HCPCS: 36415; 80048; 82607; 82671; 82728; 83001; 83002; 84144; 84146; 84402; 84403; 84439; 84443; 84481; 85025